=== PATIENT | male | born 1990 | race Caucasian/White ===

== ENCOUNTER 2020-03-21 05:44 | Emergency (ER) | payer OTHER, SELFPAY ==
[2020-03-21 06:03] VITALS: BP 122/84; PULSE 112; RESP 14; TEMP 36.9; O2SAT 97; BMI 33.5
[2020-03-21] MEDS: hydrOXYzine HCL 50 MG TABLET PO (06:21)
--- NOTE | 2020-03-21 06:23 | ECG_ITS ---
Test Reason : ANXIETY Blood Pressure : / mmHG Vent. Rate : 098 BPM Atrial Rate : 098 BPM P-R Int : 170 ms QRS Dur : 080 ms QT Int : 290 ms P-R-T Axes : 000 -23 -26 degrees QTc Int : 370 ms Normal sinus rhythm Low voltage QRS Possible Inferior infarct , age undetermined Abnormal ECG When compared with ECG of 15-FEB-2015 17:24, Vent. rate has increased BY 44 BPM QRS voltage has decreased Inferior infarct is now Present Inverted T waves have replaced nonspecific T wave abnormality in Inferior leads Nonspecific T wave abnormality now evident in Anterolateral leads Referred By: Samantha Goyal Electronically Signed By:EJ YUNG MD
--- NOTE | 2020-03-21 06:24 | ED.SOB ---
HPI - SOB/Dyspnea General Chief Complaint: Anxiety Stated Complaint: +Covid 19 Time Seen by Provider: 03/21/20 06:10 Source: patient Mode of arrival: ambulatory History of Present Illness HPI Narrative: This is a 29-year-old male who presents with 2-3 days shortness of breath, but states that he suffers from frequent panic attacks as well as suspecting that he has obstructive sleep apnea. These episodes of shortness of breath have not been associated with headaches, dizziness, chest pain, GI symptoms and he is noted to have been diagnosed with COVID-19 03/10. Related Data Previous Rx's Medication Instructions Recorded hydroxyzine HCl 25 mg PO TID PRN #7 tab 03/21/20 Allergies Allergy/AdvReac Type Severity Reaction Status Date / Time No Known Allergies Allergy Verified 03/21/20 06:09 Review of Systems Review of Systems: Pertinent positives and negatives as stated in HPI 10 point review of systems otherwise negative. PMFSH Past Medical History Source: nursing notes reviewed Social History Social History Advance Directives: No Physical Exam Vital Signs: Vital Signs: Last Vital Signs Temp 98.4 F 03/21/20 06:03 Pulse 105 H 03/21/20 06:25 Resp 12 03/21/20 06:25 BP 139/76 03/21/20 06:25 Pulse Ox 95 03/21/20 06:25 Body Mass Index 33.5 VITAL SIGNS: Reviewed. GENERAL: Well developed, well nourished, anxious. HEAD: Normocephalic/atraumatic, EYES: PERRLA, EOMI EARS: Ext canals without abnormality NOSE: Nares patent bilateral OROPHARYNX: no oral lesions noted, posterior pharynx clear NECK: Supple, no adenopathy LUNGS: Normal breath sounds, no tachypnea, SpO2<97> CARDIOVASCULAR: Regular rate and rhythm without noted murmurs, no JVD or lower extremity edema. ABDOMEN: Soft, non-tender, non-distended with bowel sounds. No rigidity. No guarding. No palpable masses or hernias noted MUSCULOSKELETAL: No tenderness, deformities, or effusions noted on gross inspection. EXTREMITIES: No cyanosis, clubbing or edema. SKIN: Inspection of the skin reveals no rashes, ulcerations, jaundice, pallor, or petechiae. NEUROLOGIC: Alert and oriented x 4. Strength and sensation to light touch were grossly intact x 4. Course Course Course Narrative: This is a 29-year-old male with history and clinical presentation consistent with panic attack and anxiety and on review of investigations there are no acute arrhythmias noted on EKG, D-dimer is within normal negative, and patient has had symptomatic improvement after receiving hydroxyzine. MDM - SOB/Dyspnea Lab Data Labs: Lab Results 03/21/20 Range/Units 06:39 D-Dimer < 200 NG/ML ECG Data Attestation: I personally reviewed and interpreted this ECG as follows: Interpretation: Normal sinus rhythm, HR-98, no evidence of acute ischemia, TX/QRS/QTC are within normal limits. Discharge Plan Discharge Clinical Impression: Panic disorder Patient Disposition: Home, Self-Care Instructions: Anxiety (ED), Panic Attack (ED) Additional Instructions: Please return to the emergency department if you developed acute worsening of your symptoms. Prescriptions: New hydroxyzine HCl 25 mg tablet 25 mg PO TID PRN (Reason: anxiety) Qty: 7 RF: 0 Referrals: Marco Ramirez PA-C [Primary Care Provider] - 2 days
[2020-03-21 06:25] VITALS: BP 139/76; PULSE 105; RESP 12; O2SAT 95
[2020-03-21 06:54] LABS: D Dimer < 200 NG/ML
[2020-03-21 07:21] VITALS: BP 99/64; PULSE 109; RESP 14; TEMP 36.9; O2SAT 94
--- NOTE | 2020-03-21 07:23 | PC.NURSE ---
report taken from elba/duran rn. pt resting comfortably on stretcher. reports no sob, feels more relaxed after medicated. vitals stable. sinus tach on tele. waiting re eval from provider for dispo.
== END 2020-03-21 08:19 | disposition home or self-care (01) ==
PROVIDERS: Emergency Provider Student in an Organized Health Care Education/Training Program; PCP Physician Assistant
DX: U07.1 COVID-19 (principal); F41.0 Panic disorder [episodic paroxysmal anxiety]; F43.0 Acute stress reaction; Z79.899 Other long term (current) drug therapy
CPT/HCPCS: 36415; 85379; 93005; 99283; 99284

== ENCOUNTER 2020-12-14 16:40 | Emergency (ER) | payer OTHER, SELFPAY ==
--- NOTE | ~2020-12-14 | CT_ITS ---
EXAMINATION: CT ABDOMEN AND PELVIS WITH CONTRAST CLINICAL INFORMATION: Epigastric and left lower quadrant pain. COMPARISON: No similar priors. TECHNIQUE: Multidetector volumetric images were obtained from the superior aspect of the liver through the pubic symphysis following administration 85 mL of Omnipaque 350 intravenous contrast. Sagittal and coronal reformatted images were obtained on the technologist's workstation. Oral contrast: No This CT examination was performed using dose optimization techniques as appropriate, variously including the following: *Automated exposure control *Adjustment of mA and/or kV according to patient size (this includes techniques or standardized protocols for targeted exams where dose is matched to indication/reason for exam; i.e. extremities or head) *Use of iterative reconstruction technique DLP: 820 mGy-cm FINDINGS: LUNG BASES: Subsegmental atelectasis in the right middle lobe. No focal consolidation or pleural effusion. LIVER, GALLBLADDER, AND BILIARY TREE: The liver is normal in size, shape, and attenuation. No focal hepatic lesion or biliary ductal dilatation is present. The gallbladder is unremarkable with no evidence of radiopaque gallstones, gallbladder wall thickening, or obvious pericholecystic inflammatory changes. PANCREAS: Unremarkable. SPLEEN: Unremarkable. ADRENAL GLANDS: Unremarkable. KIDNEYS AND URETERS: The kidneys are normal in size, shape, and attenuation. No hydronephrosis, hydroureter, or calculi seen. No perinephric stranding. BLADDER: Unremarkable. GASTROINTESTINAL TRACT: The stomach and the small bowel are nondilated. The appendix is unremarkable. There is colonic diverticulosis but no evidence of acute diverticulitis. No pericolic inflammatory changes. No bowel obstruction. Moderate amount stool burden in the sigmoid and rectum. ABDOMINAL WALL: Small fat-containing umbilical hernia. LYMPH NODES: No lymphadenopathy by size criteria. VASCULAR: Unremarkable. PELVIC VISCERA: Unremarkable. OSSEOUS STRUCTURES: No acute or aggressive osseous abnormalities. CT/CT abdomen pelvis w con IMPRESSION: No acute intra-abdominal or pelvic abnormalities to explain the patient's symptoms. There is mild colonic diverticulosis but no evidence of acute diverticulitis.
[2020-12-14 16:52] VITALS: BP 145/78; PULSE 69; RESP 16; TEMP 36.2; O2SAT 99; BMI 31.1
[2020-12-14 17:12] LABS: Basophils Absolute Auto 0.1 X10*3/uL (0.0-0.2); Basophils Percent Auto 0.7 % (0-2); Eosinophils Absolute Auto 0.1 X10*3/uL (0.0-0.4); Eosinophils Percent Auto 0.9 % (0-4); Hematocrit 42.5 % (42-52); Hemoglobin 14.4 g/dl (14.0-18.0); Imm Gran Abs Auto 0.04 X10*3/uL (0.00-0.03); Imm Gran Pct Auto 0.4 % (0.0-0.4); Lymphocytes Absolute Auto 2.2 X10*3/uL (1.2-4.9); Lymphocytes Percent Auto 24.2 % (20-40); MANUAL DIFF FLAG NO; Mean Corpuscular HGB Conc 33.9 g/dl (31.0-36.0); Mean Corpuscular Hemoglobin 30.5 pg (27.0-33.0); Mean Platelet Volume 8.9 fL (9.4-12.4); Monocytes Absolute Auto 0.8 X10*3/uL (0.1-1.2); Monocytes Percent Auto 9.1 % (2-11); Neutrophils Percent Auto 64.7 % (45-73); Platelet Count 250 X10*3/uL (160-400); Red Blood Count 4.72 X10*6/uL (4.60-5.80); Red Cell Distribution Width 13.2 % (11.0-16.0); White Blood Count 9.2 X10*3/uL (4.8-10.8)
[2020-12-14 17:12] LABS: Appearance Urine CLEAR; Color Urine YELLOW; Glucose Urine UA NEG (NEG); Leukocyte Esterase Urine NEG (NEG); Nitrite Urine NEG (NEG); Urine Blood NEG (NEG); Urine Ketones NEG (NEG); Urine Protein NEG (NEG-TRACE)
[2020-12-14 17:27] LABS: Alanine Aminotransferase 34 U/L (0-40); Albumin Level 4.7 g/dL (3.5-5.0); Alkaline Phosphatase 56 U/L (39-117); Anion Gap 15 (12-20); Aspartate Amino Transferase 23 U/L (5-37); Bilirubin Total 1.1 mg/dL (0.0-1.0); Blood Urea Nitrogen 16 mg/dL (9-16); Carbon Dioxide 29 mmol/L (22-29); Chloride 102 mmol/L (96-108); Creatinine Clr Calc Pharmacy 123.7; Estimated Glomerular Filt Rate > 60; Glucose Random 91 mg/dL (60-115); Potassium 4.7 mmol/L (3.3-5.1); Sodium 141 mmol/L (135-145); Total Protein 7.6 g/dL (6.5-8.0)
--- NOTE | 2020-12-14 17:55 | ED.ABDPAIN ---
HPI - Abdominal Pain General Chief Complaint: Abdominal Pain Stated Complaint: Stomach Pain Time Seen by Provider: 12/14/20 17:31 Source: patient Mode of arrival: ambulatory Limitations: no limitations History of Present Illness HPI narrative: 30-year-old male who presents emergency department for evaluation of upper and lower abdominal pain. Patient states he has had similar pain on and off over the past year. He states that he turned 30 yesterday and he did have a significant amount of alcohol to drink over the weekend. He states that yesterday morning he woke up with abdominal pain. He points to his epigastric area and left lower quadrant when asked to localize the pain. He describes the pain as a burning sensation which is constant and is 8/10 at its worst. He states that food seems to make the pain worse. He states that often the pain is worse immediately after eating and sometimes worse several hours after eating. He states that he gets intermittent episodes of diarrhea with no blood in his stool. The patient did see a storm window installer who specializes and ?got health ?. Patient had a workup by this storm window installer approximately 1 month prior and it was noted that he had blood in his stool. He is also noted to have increased IgA in his stool suggesting that he has an inflammatory process according to his storm window installer. The patient states the often has a abnormal taste in his mouth but is vague at specify the sensation. He states that he has been having trouble sleeping. He will occasionally take Tums with improvement of his epigastric pain. Related Data Previous Rx's Medication Instructions Recorded hydroxyzine HCl 25 mg tablet 25 mg PO TID PRN #7 tab 03/21/20 omeprazole 20 mg capsule,delayed 20 mg PO DAILY 30 Days #30 cap 12/14/20 release ondansetron 4 mg disintegrating 4 mg PO Q6-8H PRN #14 tab 12/14/20 tablet Allergies Allergy/AdvReac Type Severity Reaction Status Date / Time No Known Allergies Allergy Verified 03/21/20 06:09 Review of Systems Review of Systems Yes all other systems are reviewed and are negative Physical Exam Vital Signs: Vital Signs: Last Vital Signs Temp 97.2 F 12/14/20 16:52 Pulse 69 12/14/20 16:52 Resp 16 12/14/20 16:52 BP 145/78 H 12/14/20 16:52 Pulse Ox 99 12/14/20 16:52 Body Mass Index 31.1 Const: General: cooperative and no acute distress Orientation/consciousness: oriented to person and oriented to place Limitations: no limitations HENMT: Head: Yes normal to inspection, Yes normocephalic and Yes atraumatic Ears: external ears normal General nose exam: Normal external nose present Face and sinus: Yes normal facial exam Mouth: Normal oral and palatal mucosa present Throat: Yes posterior oropharynx normal Eyes: General: appearance normal, both eyes and all related structures Pupils: Equal, round and reactive pupils present Neck: Neck: Yes normal visual inspection, Yes no lymphadenopathy, Yes trachea midline and Yes supple Chest: Chest palpation & inspection: normal inspection of the chest and normal palpation of entire chest wall Resp: Effort & Inspection: normal respiratory effort and able to speak in complete sentences Auscultation: clear to auscultation bilaterally Cardio: Rate: regular rate Rhythm: regular rhythm Heart sounds: S1 normal heart sound present, S2 normal heart sound present and no murmurs GI: Inspection: Yes normal to inspection Palpation (GI): Soft to palpation, Tenderness to palpation present (GI) in the epigastrum (Moderate) and in the LLQ (Moderate) and no guarding Auscultation: normal bowel sounds Rectal Exam - Male: Yes Visual inspection abnormal, Yes normal sphincter tone, Yes heme negative stool and Yes other (Stool was soft and brown) : General: Yes no CVA tenderness Back/Spine/Pelvis: Back: no CVA tenderness Skin: General skin exam: no rashes or lesions noted Neuro: General: oriented to person and oriented to place Cranial nerves: Yes CN's II-XII intact bilaterally and Yes Equal, round and reactive pupils present Cognition (Neuro): normal cognition Motor exam (neuro): 5/5 motor strength present throughout Extrem: General: Yes normal to inspection Psych: Appearance: grossly normal Speech and movement: Normal speech and movement present Affect: normal affect Attitude: cooperative Thought process: Normal thought process present Thought content: Normal thought content present Course Course Course Narrative: 30-year-old male who presents emergency department for evaluation of epigastric and left lower quadrant pain which began yesterday. The patient did have increased amount of alcohol to drink over the weekend since it was his birthday. He states that the pain is exacerbated by eating food. Patient has had similar pains in the past . Vital signs revealed a slight elevation in his blood pressure of 145/78 otherwise were normal. Physical examination did reveal midepigastric and left lower quadrant tenderness. Rectal exam revealed brown stool which was Hemoccult negative. The patient's laboratory evaluation revealed a normal CBC and normal CMP except for slight elevation in total bilirubin of 1.1. Urinalysis was negative. Given his left lower quadrant tenderness, I did order a CT scan of the abdomen pelvis with IV contrast to rule out diverticulitis. The patient will be given Maalox 30 cc, viscous lidocaine 30 cc and 10 cc orally for his epigastric pain. 2004: The patient's CT scan of the abdomen pelvis with IV contrast did not reveal a clear etiology for the patient's pain. Patient does have diverticulosis but no diverticulitis. There is no evidence of cholecystitis on the CT scan. I did discuss these findings with the patient. The patient is feeling better after receiving the GI cocktail. My impression is that the patient's pain is most likely caused by gastritis and could be related to the amount of alcohol that he drinks. I did discuss this with him as well. Patient was started on Prilosec 20 mg once a day for 1 month. Also advised to take Gaviscon extra-strength for the next week help with his discomfort. The patient was also given a prescription for Zofran 4 mg ODT every 6-8 hours as needed for nausea and vomiting. He was advised to stay on a basic diet for 1 week as well to see if this improves his pain. MDM - Abdominal Pain Lab Data Result diagrams: 12/14/20 17:05 12/14/20 17:05 Labs: Lab Results 12/14/20 12/14/20 12/14/20 Range/Units 17:05 17:05 17:07 WBC 9.2 (4.8-10.8) X10*3/uL RBC 4.72 (4.60-5.80) X10*6/uL Hgb 14.4 (14.0-18.0) g/dl Hct 42.5 (42-52) % MCV 90.0 (80-98) fL MCH 30.5 (27.0-33.0) pg MCHC 33.9 (31.0-36.0) g/dl RDW 13.2 (11.0-16.0) % Plt Count 250 (160-400) X10*3/uL MPV 8.9 L (9.4-12.4) fL Immature Gran % (Auto) 0.4 (0.0-0.4) % Neut % (Auto) 64.7 (45-73) % Lymph % (Auto) 24.2 (20-40) % Piatt % (Auto) 9.1 (2-11) % Eos % (Auto) 0.9 (0-4) % Baso % (Auto) 0.7 (0-2) % Lymph # (Auto) 2.2 (1.2-4.9) X10*3/uL Piatt # (Auto) 0.8 (0.1-1.2) X10*3/uL Eos # (Auto) 0.1 (0.0-0.4) X10*3/uL Baso # (Auto) 0.1 (0.0-0.2) X10*3/uL Abs Immat Gran (auto) 0.04 H (0.00-0.03) X10*3/uL Absolute Neuts (auto) 6.0 (2.0-8.3) X10*3/uL Absolute Nucleated RBC 0.000 (0.0-0.012) X10*3/uL Nucleated RBC % (auto) 0.0 (0.0-0.2) /100WBC Sodium 141 (135-145) mmol/L Potassium 4.7 (3.3-5.1) mmol/L Chloride 102 (96-108) mmol/L Carbon Dioxide 29 (22-29) mmol/L Anion Gap 15 (12-20) BUN 16 (9-16) mg/dL Creatinine 1.09 (0.5-1.4) mg/dL Estim Creat Clear Calc 123.7 Estimated GFR > 60 Random Glucose 91 (60-115) mg/dL Calcium 10.0 (8.4-10.2) mg/dL Total Bilirubin 1.1 H (0.0-1.0) mg/dL AST 23 (5-37) U/L ALT 34 (0-40) U/L Alkaline Phosphatase 56 (39-117) U/L Total Protein 7.6 (6.5-8.0) g/dL Albumin 4.7 (3.5-5.0) g/dL Urine Color YELLOW Urine Appearance CLEAR Urine pH 6.0 (5.0-8.0) Ur Specific [place] 1.010 (1.005-1.025) Urine Protein NEG (NEG-TRACE) MG/DL Urine Glucose (UA) NEG (NEG) MG/DL Urine Ketones NEG (NEG) MG/DL Urine Blood NEG (NEG) Urine Nitrite NEG (NEG) Ur Leukocyte Esterase NEG (NEG) Discharge Plan Discharge Clinical Impression: Nausea Gastritis Qualifiers: Gastritis type: unspecified gastritis Chronicity: acute Gastritis bleeding: without bleeding Qualified Code(s): K29.00 - Acute gastritis without bleeding Patient Disposition: Home, Self-Care Instructions: Gastritis (ED), Diet for Stomach Ulcers and Gastritis (ED) Additional Instructions: Your examination did reveal tenderness with pushing over your stomach area and with pushing over your left lower part of your abdomen. Your rectal exam revealed normal colored stool and your Hemoccult test was negative for blood in your stool The CT scan of your abdomen pelvis with IV contrast did not reveal a clear cause for your pain. Your gallbladder looked normal however gallstones are not visible on a CT scan but I do not think that your pain is caused by your gallbladder. You do have diverticulosis (small pockets in your large intestine) in your left colon but I do not think that this is the cause of your pain. Your pain is most likely related to inflammation of your stomach (gastritis). This can sometimes caused by drinking too much alcohol. You should stop drinking alcohol for at least 1 month. Take Prilosec (omeprazole) 20 mg once a day for 1 month. This medication shuts off your acid production and allows your stomach to heal. For the next week take extra-strength Gaviscon 30 mL 4 times a day as directed on the box this will help with your stomach pain and reduce the acid in your stomach until the Prilosec kicks in. After 1 month if you are feeling better but are still having intermittent pain you should take an [id number] H2 daphne (Pepcid, Zantac or Tagamet) as directed on the box. If the pain is not better or getting worse than you may need to see a financial analyst intern, you should discuss this with your doctor. Take Zofran ODT 4 mg pills, 1 pill dissolved in your mouth every 8 hours as needed for nausea and vomiting. Follow the diet instructions. Follow-up with your doctor in 2 days. Please return to the emergency department if your symptoms get worse or if you develop any symptoms that are concerning to you. Prescriptions: New omeprazole 20 mg capsule,delayed release(DR/EC) 20 mg PO DAILY 30 Days Qty: 30 RF: 0 ondansetron 4 mg tablet,disintegrating 4 mg PO Q6-8H PRN (Reason: nausea and vomiting) Qty: 14 RF: 0 No Action hydroxyzine HCl 25 mg tablet 25 mg PO TID PRN (Reason: anxiety) Qty: 7 RF: 0 PMFSH Past Medical History [facility] Narrative: Past medical history: None. Past surgical history: None. Social history: The patient occasionally smokes cigarettes. He states that he drinks alcohol 3 times a week any drinks [employer] 3-4 shots when he drinks. He denies drug use. Social History Social History Advance Directives: No Advance Directives Information Provided: Yes
[2020-12-14] MEDS: Magnesium Hydrox/Alum Hydrox 30 ML ORAL.SUSP PO (18:11)
[2020-12-14] MEDS: PHENobarb/Hyoscy/Atropine/Scop 10 ML ELIXIR PO (18:11)
[2020-12-14] MEDS: Lidocaine HCl Viscous 2 % 15 ML SOLUTION 10 ML PO (18:11)
[2020-12-14] MEDS: iohexoL 350 MG/ML 100 ML INFUS..BTL IV (18:27)
== END 2020-12-14 20:27 | disposition home or self-care (01) ==
PROVIDERS: Emergency Provider Emergency Medicine Emergency Medical Services; PCP Physician Assistant
DX: K29.00 Acute gastritis without bleeding (principal); R11.0 Nausea
CPT/HCPCS: 36415; 74177; 80053; 81003; 85025; 99284; 99285; Q9967

== ENCOUNTER 2022-01-21 05:31 | Emergency (ER) | payer MEDICAID, SELFPAY ==
[2022-01-21 05:35] VITALS: BP 128/67; PULSE 104; RESP 18; TEMP 39.3; O2SAT 98; BMI 30.7
[2022-01-21] MEDS: Acetaminophen 325 MG TABLET 975 MG PO (05:43)
[2022-01-21 06:33] LABS: Influenza A PCR NEGATIVE (Negative); Influenza B PCR NEGATIVE (Negative); Resp Syncy Virus RNA Qual PCR POSITIVE (Negative); SARS COV2 PCR INHOUSE NEGATIVE (Negative)
--- NOTE | 2022-01-21 08:01 | ED.GENADULT ---
HPI - General Adult General Chief complaint: General Medical Stated complaint: Fever/Sore throat/Bodyaches Time Seen by Provider: 01/21/22 07:59 Source: patient Mode of arrival: ambulatory Limitations: no limitations History of Present Illness HPI narrative: 31-year-old male with no medical history presents to the ER for evaluation of fevers and body aches. He has productive cough and generally not feeling well. He states he has been on and off sick since but acutely woke up at 03:00 this morning with worsening symptoms. He has a young daughter at home but she is not sick right now. No other known sick contacts. He has no difficulty breathing, shortness of breath, nausea, vomiting or abdominal pain. MD complaint: Fevers and body aches Onset (ago): hour(s) Location: head, face and chest Radiation: non-radiation Severity: moderate Severity scale (1-10): 5 Quality: aching Pain Consistency: constant Relieving factors: medication Exacerbating factors: none Associated symptoms: cough, fever/chills, headaches, loss of appetite, malaise and weakness Treatments prior to arrival: none Related Data Previous Rx's Medication Instructions Recorded hydroxyzine HCl 25 mg tablet 25 mg PO TID PRN anxiety #7 tabs 03/21/20 omeprazole 20 mg capsule,delayed 20 mg PO DAILY 30 days #30 caps 12/14/20 release ondansetron 4 mg disintegrating 4 mg PO Q6-8H PRN nausea and 12/14/20 tablet vomiting #14 tabs Allergies Allergy/AdvReac Type Severity Reaction Status Date / Time No Known Allergies Allergy Verified 01/21/22 05:39 Review of Systems Review of Systems: Constitutional: +Fever, +Chills ENT/Mouth: No sore throat, No Rhinorrhea, No Swallowing Difficulty, +Otalgia Eyes: No Eye Pain, No Swelling, No Redness Cardiovascular: No Chest Pain, No SOB, No Orthopnea, No Edema Respiratory: + Cough, +Sputum, No Wheezing, No dyspnea Gastrointestinal: No Nausea, No Vomiting, No Diarrhea, No abdominal Pain Genitourinary: No Dysuria, No Urinary Frequency, No Hematuria Musculoskeletal: No joint pain, + Myalgias Skin: No Skin Lesions, No rash Neuro: No Weakness, No Numbness, No Dizziness, +Headache Heme/Lymph: No Bruising, No Lymphadenopathy PMFSH Social History Social History Advance Directives: No Advance Directives Information Provided: Yes Physical Exam ED Vital Signs: Vital Signs - 24 hr 01/21/22 05:35 Temperature 102.7 F H Pulse Rate 104 H Respiratory Rate 18 Blood Pressure 128/67 Pulse Oximetry 98 Oxygen Delivery Method Room Air BMI result Body Mass Index 30.7 Appearance: Alert. Oriented X3. No acute distress. Eyes: Pupils equal, round and reactive to light. ENT: Pharynx normal. Neck: Normal inspection. Neck supple. CVS: Normal heart rate and rhythm. Pulses normal. Respiratory: No respiratory distress. Breath sounds normal. Abdomen: Soft and nontender. +BS x4 Skin: Skin warm and dry. Normal skin color. Normal skin turgor. No rashes. Extremities: No lower extremity edema. Neuro: Oriented X 3. Grossly normal, nonfocal Course Course Course Narrative: 31-year-old male presents to the ER for evaluation of fever, body aches, productive cough. Fever of 102.7 on arrival today. Will he otherwise appears well in physical exam is unremarkable. He had viral PCR today and he tested positive for RSV. Discussed diagnosis and management. He is stable for discharge home with supportive care. Medications Administered Discontinued Medications Generic Name Dose Route Start Last Admin Trade Name Freq PRN Reason Stop Dose Admin Acetaminophen 975 mg 01/21/22 05:40 01/21/22 05:43 Acetaminophen 325 Mg Tablet PO 01/21/22 05:41 975 mg ONCE ONE Administration Medical Decision Making Lab Data Labs: Lab Results 01/21/22 Range/Units 05:47 Influenza Type A (PCR) NEGATIVE (Negative) Influenza Type B (PCR) NEGATIVE (Negative) RSV RNA Qual (PCR) POSITIVE A (Negative) SARS-CoV-2 RNA (RT-PCR) NEGATIVE (Negative) Discharge Plan Discharge Clinical Impression: Respiratory syncytial virus (RSV) Patient Disposition: Home, Self-Care Instructions: Respiratory Syncytial Virus (ED) Additional Instructions: You tested positive for RSV today. Treatment is supportive care - rest and stay hydrated. Do not go out in public while you are not feeling well. Take over the counter cold/flu medications as needed for your symptoms. Take Tylenol and/or Motrin as needed for fevers and body aches. Follow up with your doctor this week. If you develop new or worsening symptoms call 911 or come back to the ER for further evaluation. Prescriptions: No Action hydroxyzine HCl 25 mg tablet 25 mg PO TID PRN (Reason: anxiety) Qty: 7 0RF omeprazole 20 mg capsule,delayed release(DR/EC) 20 mg PO DAILY 30 Days Qty: 30 0RF ondansetron 4 mg tablet,disintegrating 4 mg PO Q6-8H PRN (Reason: nausea and vomiting) Qty: 14 0RF Stand Alone Forms: Work/School Release
== END 2022-01-21 08:26 | disposition home or self-care (01) ==
PROVIDERS: Emergency Provider Emergency Medicine
DX: R50.9 Fever, unspecified (principal); B97.4 Respiratory syncytial virus as the cause of diseases classified elsewhere; R51.9 Headache, unspecified; Z20.822 Contact with and (suspected) exposure to COVID-19
CPT/HCPCS: 0241U; 99283

== ENCOUNTER 2022-12-02 07:28 | Emergency (ER) | payer OTHER, SELFPAY ==
[2022-12-02 07:53] VITALS: BP 134/89; PULSE 77; RESP 16; TEMP 37; O2SAT 98; BMI 34.9
--- NOTE | 2022-12-02 08:31 | ED.URI ---
HPI - URI/Sore Throat General Chief Complaint: Upper Respiratory Symptoms Stated Complaint: sore throat Time Seen by Provider: 12/02/22 08:04 Source: patient Mode of arrival: ambulatory Limitations: no limitations History of Present Illness HPI Narrative: 31-year-old male came in for evaluation of sore throat x1 day. No fever, chills, no exposure to sick contacts, no recent travel. Related Data Previous Rx's Medication Instructions Recorded hydroxyzine HCl 25 mg tablet 25 mg PO TID PRN anxiety #7 tabs 03/21/20 omeprazole 20 mg capsule,delayed 20 mg PO DAILY 30 days #30 caps 12/14/20 release ondansetron 4 mg disintegrating 4 mg PO Q6-8H PRN nausea and 12/14/20 tablet vomiting #14 tabs amoxicillin 875 mg-potassium 1 tab PO Q12H #20 tabs 12/02/22 clavulanate 125 mg tablet Allergies Allergy/AdvReac Type Severity Reaction Status Date / Time No Known Allergies Allergy Verified 01/21/22 05:39 Review of Systems Review of Systems: All other systems are reviewed and are negative Constitutional: Reports as per HPI and Reports no additional constitutional complaints Eyes: Reports as per HPI and Reports no additional eye complaints Reports system reviewed and no additional complaints, except as documented Cardiovascular: Reports as per HPI and Reports no additional cardiovascular complaints Respiratory: Reports as per HPI and Reports no additional respiratory complaints Gastrointestinal: Reports as per HPI and Reports no additional gastrointestinal complaints Genitourinary: Reports no additional female genitourinary complaints Musculoskeletal: Reports no additional musculoskeletal complaints Skin/Breast: Reports system reviewed and no additional complaints, except as docu Psychiatric: Reports no additional psychiatric complaints Endocrine: Reports no additional endocrine complaints Hematologic/Lymphatic: Reports no additional hematologic/lymphatic complaints Allergic/Immunologic: Reports no additional allergic/immunologic complaints Reports system reviewed and no additional complaints, except as documented and Reports Abnormal speech present [facility] Social History Social History Advance Directives: No Advance Directives Information Provided: No Physical Exam Vital Signs: Vital Signs: Last Vital Signs Temp 98.6 F 12/02/22 07:53 Pulse 77 12/02/22 07:53 Resp 16 12/02/22 07:53 BP 134/89 12/02/22 07:53 Pulse Ox 98 12/02/22 07:53 O2 Del Method Room Air 12/02/22 07:53 BMI result Body Mass Index 34.9 Vital signs have been reviewed and appear to be correct. Blood pressure elevated. Heart rate normal. Respiratory rate normal. Temperature normal. Oxygen saturation normal. Appearance: Alert. Oriented X3. No acute distress. Head: Normal external exam. Normocephalic. Atraumatic. No Seaman signs noted. No raccoon eyes noted Eyes: PERRLA. EOMI. Conjunctiva and sclera normal. Eyelids normal. ENT: TM's Normal. Pharynx normal. Uvula midline. Moist mucous membranes. No trismus noted. No drooling noted. No muffled voice noted. Neck: Normal inspection. Neck supple. FROM. No adenopathy. Thyroid Normal. No meningeal signs. No neck mass noted. CVS: Normal heart rate and rhythm. Heart sound normal. No murmurs noted. Pulses normal throughout. Respiratory: No respiratory distress. Painless inspiration. Breath sounds normal. No wheezes/rales/rhonchi noted. Chest nontender. No accessory muscle usage noted or decreased air movement noted. Abdomen: Soft and nontender. Bowel sounds normal in all 4 quadrants. No distention noted. No organomegaly noted. No visible injury noted. Back: No CVA tenderness. Full range of motion noted. Skin: Skin warm and dry. Normal skin color. Normal skin turgor. No rashes/lesions/lacerations noted. Extremities: No lower extremity edema. Extremities exhibit normal range of motion. Extremities nontender. Neuro: Oriented X 3. Cranial nerve exam: II-XII are grossly intact No motor deficit. No sensory deficit. Reflexes normal. Course Reevaluation(s) Reevaluation #1: Strep pharyngitis Start the patient on Augmentin Time: 08:44 Medical Decision Making Differential Diagnosis Differential Diagnoses: The differential diagnosis associated with the presentation includes ( pharyngitis, viral infection.) Lab Data MDM Lab Attestation statement: I reviewed the patient's lab results. Labs: Lab Results 12/02/22 Range/Units 08:07 S. pyogenes GrpA ANGELIC Positive A (Negative) Discharge Plan Discharge Clinical Impression: Pharyngitis Patient Disposition: Home, Self-Care Instructions: Pharyngitis (ED) Prescriptions: New amoxicillin-pot clavulanate 875-125 mg tablet 1 tab PO Q12H Qty: 20 0RF No Action hydroxyzine HCl 25 mg tablet 25 mg PO TID PRN (Reason: anxiety) Qty: 7 0RF omeprazole 20 mg capsule,delayed release(DR/EC) 20 mg PO DAILY 30 Days Qty: 30 0RF ondansetron 4 mg tablet,disintegrating 4 mg PO Q6-8H PRN (Reason: nausea and vomiting) Qty: 14 0RF Referrals: Aidan Minor MD [Primary Care Provider] - Stand Alone Forms: Work/School Release
[2022-12-02 08:39] LABS: IDNOW Serial# 08D9AD1C; Strep A Nucleic Acid Positive (Negative)
[2022-12-02 08:46] LABS: COVID-19 Test Negative (Negative); IDNOW Serial# BCCEAD1C
[2022-12-02] MEDS: Amoxicillin/Potassium Clav 875 MG TABLET PO (08:56)
== END 2022-12-02 09:26 | disposition home or self-care (01) ==
PROVIDERS: Emergency Provider Emergency Medicine; PCP Internal Medicine
DX: J02.9 Acute pharyngitis, unspecified (principal); Z11.52 Encounter for screening for COVID-19
CPT/HCPCS: 87635; 87651; 99282

== ENCOUNTER 2023-01-14 03:36 | Emergency (ER) | payer OTHER, SELFPAY ==
--- NOTE | ~2023-01-14 | XR_ITS ---
EXAMINATION: XR CHEST CLINICAL INFORMATION: Cough, congestion, shortness of breath COMPARISON: 02/15/2015 TECHNIQUE: Frontal view of the chest was obtained. FINDINGS: The lungs are clear with no focal consolidation. No evidence of pneumothorax, pulmonary edema, or pleural effusions. The cardiomediastinal silhouette is unremarkable. No acute osseous findings. XR/XR chest 1V IMPRESSION: No acute cardiopulmonary findings.
[2023-01-14 03:45] VITALS: BP 154/83; PULSE 77; RESP 18; TEMP 36.8; O2SAT 97; BMI 35.6
--- NOTE | 2023-01-14 03:59 | ED.URI ---
HPI - URI/Sore Throat General Chief Complaint: Upper Respiratory Symptoms Stated Complaint: respiratory problem Time Seen by Provider: 01/14/23 04:04 Source: patient Mode of arrival: ambulatory Limitations: no limitations History of Present Illness HPI Narrative: 32-year-old male came in for evaluation of coughing, sore throat, bilateral ear pain. About a month ago patient was diagnosed with strep pharyngitis that was treated with Augmentin, the patient started to have some upper respiratory with cough no fever, or chills. Patient has 3 daughters at home the youngest is always feels sick. Patient declined fever or chills. Related Data Previous Rx's Medication Instructions Recorded hydroxyzine HCl 25 mg tablet 25 mg PO TID PRN anxiety #7 tabs 03/21/20 omeprazole 20 mg capsule,delayed 20 mg PO DAILY 30 days #30 caps 12/14/20 release ondansetron 4 mg disintegrating 4 mg PO Q6-8H PRN nausea and 12/14/20 tablet vomiting #14 tabs amoxicillin 875 mg-potassium 1 tab PO Q12H #20 tabs 12/02/22 clavulanate 125 mg tablet amoxicillin 500 mg tablet 500 mg PO BID #20 tabs 01/14/23 Allergies Allergy/AdvReac Type Severity Reaction Status Date / Time No Known Allergies Allergy Verified 01/21/22 05:39 Review of Systems Review of Systems: All other systems are reviewed and are negative Constitutional: Reports as per HPI and Reports no additional constitutional complaints Eyes: Reports as per HPI and Reports no additional eye complaints Reports system reviewed and no additional complaints, except as documented Cardiovascular: Reports as per HPI and Reports no additional cardiovascular complaints Respiratory: Reports as per HPI and Reports no additional respiratory complaints Gastrointestinal: Reports as per HPI and Reports no additional gastrointestinal complaints Genitourinary: Reports no additional female genitourinary complaints Musculoskeletal: Reports no additional musculoskeletal complaints Skin/Breast: Reports system reviewed and no additional complaints, except as docu Psychiatric: Reports no additional psychiatric complaints Endocrine: Reports no additional endocrine complaints Hematologic/Lymphatic: Reports no additional hematologic/lymphatic complaints Allergic/Immunologic: Reports no additional allergic/immunologic complaints Reports system reviewed and no additional complaints, except as documented and Reports Abnormal speech present PMFSH Social History Alcohol intake: current Alcohol intake frequency: a few times a week Smoked in Last 30 Days: No Use of substances other than those prescribed or required for medical reasons: No Advance Directives: No Advance Directives Information Provided: Yes Physical Exam Vital Signs: Vital Signs: Last Vital Signs Temp 98.2 F 01/14/23 06:02 Pulse 72 01/14/23 06:02 Resp 16 01/14/23 06:02 BP 146/87 H 01/14/23 06:02 Pulse Ox 94 01/14/23 06:02 O2 Del Method Room Air 01/14/23 06:02 BMI result Body Mass Index 35.6 Vital signs have been reviewed and appear to be correct. Blood pressure elevated. Heart rate normal. Respiratory rate normal. Temperature normal. Oxygen saturation normal. Appearance: Alert. Oriented X3. No acute distress. Head: Normal external exam. Normocephalic. Atraumatic. No Seaman signs noted. No raccoon eyes noted Eyes: PERRLA. EOMI. Conjunctiva and sclera normal. Eyelids normal. ENT: TM's Normal. Pharynx normal. Uvula midline. Moist mucous membranes. No trismus noted. No drooling noted. No muffled voice noted. Neck: Normal inspection. Neck supple. FROM. No adenopathy. Thyroid Normal. No meningeal signs. No neck mass noted. CVS: Normal heart rate and rhythm. Heart sound normal. No murmurs noted. Pulses normal throughout. Respiratory: No respiratory distress. Painless inspiration. Breath sounds normal. No wheezes/rales/rhonchi noted. Chest nontender. No accessory muscle usage noted or decreased air movement noted. Abdomen: Soft and nontender. Bowel sounds normal in all 4 quadrants. No distention noted. No organomegaly noted. No visible injury noted. Back: No CVA tenderness. Full range of motion noted. Skin: Skin warm and dry. Normal skin color. Normal skin turgor. No rashes/lesions/lacerations noted. Extremities: No lower extremity edema. Extremities exhibit normal range of motion. Extremities nontender. Neuro: Oriented X 3. Cranial nerve exam: II-XII are grossly intact No motor deficit. No sensory deficit. Reflexes normal. Course Reevaluation(s) Reevaluation #1: Patient is positive for rapid strep, start the patient on amoxicillin. Since this is the 2nd strep pharyngitis in 6 weeks and in between patient never felt completely normal I suggested to the patient to follow-up with ENT doctor for further evaluation and reassurance. Time: 05:31 Medications Administered Discontinued Medications Generic Name Dose Route Start Last Admin Trade Name Bola PRN Reason Stop Dose Admin Amoxicillin 500 mg 01/14/23 05:29 01/14/23 05:43 Amoxicillin 500 Mg Capsule PO 01/14/23 05:30 500 mg ONCE ONE Administration Medical Decision Making Differential Diagnosis Differential Diagnoses: The differential diagnosis associated with the presentation includes (Acute pharyngitis, pneumonia, pneumothorax, viral syndrome.) Admission/Observation Consideration of admission/observation: Escalation of care including admission/observation considered Lab Data MDM Lab Attestation statement: I reviewed the patient's lab results. Labs: Lab Results 01/14/23 Range/Units 04:11 Influenza Type A (PCR) NEGATIVE (Negative) Influenza Type B (PCR) NEGATIVE (Negative) RSV RNA Qual (PCR) NEGATIVE (Negative) SARS-CoV-2 RNA (RT-PCR) NEGATIVE (Negative) S. pyogenes GrpA ANGELIC Positive A (Negative) Independent Interpretation I performed an independent interpretation of an: Plain X-Ray (Chest: No acute intrathoracic pathology.) Radiology Impression Discussion of test interpretation with radiology: I have reviewed the radiologist's reading. Discharge Plan Discharge Clinical Impression: Acute streptococcal pharyngitis Patient Disposition: Home, Self-Care Instructions: Strep Throat (ED) Prescriptions: New amoxicillin 500 mg tablet 500 mg PO BID Qty: 20 0RF No Action hydroxyzine HCl 25 mg tablet 25 mg PO TID PRN (Reason: anxiety) Qty: 7 0RF omeprazole 20 mg capsule,delayed release(DR/EC) 20 mg PO DAILY 30 Days Qty: 30 0RF ondansetron 4 mg tablet,disintegrating 4 mg PO Q6-8H PRN (Reason: nausea and vomiting) Qty: 14 0RF amoxicillin-pot clavulanate 875-125 mg tablet 1 tab PO Q12H Qty: 20 0RF Referrals: Miguelangel Maria [Physician] - Interventions: ED Discharge Assessment Last Done: 01/14/23 06:07 Discharge Date/Time: 01/14/23 06:08
[2023-01-14 04:33] LABS: IDNOW Serial# 08D9AD1C; Strep A Nucleic Acid Positive (Negative)
--- OUTSIDE RECORDS SUMMARY | 2023-01-14 04:50 | XMS_ITS | Continuity of Care Document ---
Author Name Unknown Organization [facility] Address [address] [place] [address]- Care Team Providers Care Upper Trimmer Name Role Phone Aidan Minor MD Primary Care Physician [phone] [place] [facility] [place]/23 [facility] [address] [place] [address]- Encounter Diagnosis Cough(Discharge Diagnosis) - 01/01/23 Blood pressure elevated without history of HTN(Discharge Diagnosis) - 01/01/23 Attending Physician: Not on Staff, Attending MD Referring Physician: Aidan Minor MD Allergies, Adverse Reactions, Alerts No Known Allergies Immunizations Given and Recorded Vaccine Date Status Refusal Reason SARS-CoV-2 (COVID-19) mRNA BNT-162b2 vac 05/25/20 Given SARS-CoV-2 (COVID-19) mRNA BNT-162b2 vac 05/04/20 Given tetanus-diphtheria toxoids (Td) 10/15/02 Given diphtheria/tetanus/pertussis, acel(DTaP) 08/21/95 Given Polio Vaccine, Live (oldterm) 1 08/21/95 Given Polio Vaccine, Live (oldterm) 2 02/07/93 Given Polio Vaccine, Live (oldterm) 3 06/16/91 Given Polio Vaccine, Live (oldterm) 4 04/16/91 Given Measles/Mumps/Rubella Virus Vaccine 08/21/95 Given Measles/Mumps/Rubella Virus Vaccine 04/08/92 Given hepatitis B pediatric vaccine 06/07/95 Given hepatitis B pediatric vaccine 01/25/95 Given hepatitis B pediatric vaccine 09/26/94 Given Diphth/Pertussis, Whl Cell/Tet(oldterm) 5 02/07/93 Given Diphth/Pertussis, Whl Cell/Tet(oldterm) 6 09/15/91 Given Diphth/Pertussis, Whl Cell/Tet(oldterm) 7 06/16/91 Given Diphth/Pertussis, Whl Cell/Tet(oldterm) 8 04/16/91 Given Haemophilus B conjugate (HbOC) vaccine 04/08/92 [facility] Haemophilus B conjugate (HbOC) vaccine 09/15/91 [facility] Haemophilus B conjugate (HbOC) vaccine 06/16/91 [facility] Haemophilus B conjugate (HbOC) vaccine 04/16/91 [facility] jan[facility] 1Admin Note: POLIO (ORAL ) 2Admin Note: POLIO (ORAL ) 3Admin Note: POLIO (ORAL ) 4Admin Note: POLIO (ORAL ) 5Admin Note: DTP 6Admin Note: DTP 7Admin Note: DTP 8Admin Note: DTP Medications fluticasone 50 mcg/inh nasal spray 1 sprays, Nares, Both, 2 times a day, # 1 each, 0 Refills, Maintenance, 01/01/23 12:47:00 EST, [place], [id number], Partial fill upon patient request if the prescription is for a schedule II opioid drug., 1 sprays Nares, Both 2 times a day,x30 d... Start Date: 01/01/23 Stop Date: 01/31/23 Status: Ordered Sertraline By Mouth, Daily, 0 Refills, Maintenance, 01/01/23 12:14:00 EST, Partial fill upon patient request if the prescription is for a schedule II opioid drug. Start Date: 01/01/23 Status: Ordered Ventolin HFA 108 mcg/inh inhalation aerosol with adapter 2 puffs, Inhalation, Every 4 hours, PRN for wheezing, shortness of breath or cough, # 1 each, 0 Refills, Maintenance, 01/01/23 14:04:00 EST, [facility], [id number], Partial fill upon patient request if the prescription is for a schedule II opioid... Start Date: 01/01/23 Stop Date: 01/31/23 Status: Ordered Problem List Condition Confirmation Course Effective Dates Status Health St atus Informant Depression Confirmed Active Overweight Confirmed Improving Active Diagnosis Diagnosis Type Effective Dates Health Status Cl inical Service Informant Cough Discharge Diagnosis 01/01/23 Blood pressure elevated without history of HTN Discharge Diagnosis 01/01/23 Vital Signs Most recent to oldest [Reference Range]: 1 Height 177.60 cm (01/01/23 12:14 PM) Oxygen Saturation [94-100 %] 96 % (01/01/23 12:14 PM) Pulse Rate [55-90 bpm] 77 bpm (01/01/23 12:14 PM) Blood Pressure [90-138/55-84 mm Hg] 145/ 92mm Hg *H* (01/01/23 12:14 PM) Respiratory Rate [16-30 br/min] 18 br/mi n (01/01/23 12:14 PM) Temperature [96.8-100.4 DegF] 97.9 DegF (01/01/23 12:14 PM) Mode of Delivery (Oxygen) Room air (01/01/23 12:14 PM) Blood pressure sites Arm, right (01/01/23 12:14 PM) Temperature Route Oral (01/01/23 12:14 PM) Patient Care team information Care Team Personnel Name: Aidan Minor MD Position: Reference Physician Member Role: PCP Address: Address: [address] [place] [address]- Care Team Related Persons Name: MONIQUE MONTOYA Address: [address] [place] [address]
[2023-01-14 04:59] LABS: Influenza A PCR NEGATIVE (Negative); Influenza B PCR NEGATIVE (Negative); Resp Syncy Virus RNA Qual PCR NEGATIVE (Negative); SARS COV2 PCR INHOUSE NEGATIVE (Negative)
[2023-01-14] MEDS: Amoxicillin 500 MG CAPSULE PO (05:43)
[2023-01-14 06:02] VITALS: BP 146/87; PULSE 72; RESP 16; TEMP 36.8; O2SAT 94
== END 2023-01-14 06:08 | disposition home or self-care (01) ==
PROVIDERS: Emergency Provider Emergency Medicine
DX: J02.0 Streptococcal pharyngitis (principal); H92.03 Otalgia, bilateral; Z79.899 Other long term (current) drug therapy; Z20.822 Contact with and (suspected) exposure to COVID-19; Z20.828 Contact with and (suspected) exposure to other viral communicable diseases
CPT/HCPCS: 0241U; 71045; 87651; 99283; 99284

== ENCOUNTER 2023-03-13 11:35 | Outpatient (REF) | payer OTHER, SELFPAY ==
[2023-03-13 11:38] LABS: MANUAL DIFF FLAG NO
[2023-03-13 12:05] LABS: Appearance Urine Clear; Basophils Absolute Auto 0.1 X10*3/uL (0.0-0.2); Basophils Percent Auto 1.2 % (0-2); Color Urine Yellow; Eosinophils Absolute Auto 0.3 X10*3/uL (0.0-0.4); Eosinophils Percent Auto 3.6 % (0-4); Glucose Urine UA Negative (Negative); Hematocrit 44.3 % (42.0-52.0); Hemoglobin 14.8 g/dl (14.0-18.0); Imm Gran Abs Auto 0.07 X10*3/uL (0.00-0.03); Imm Gran Pct Auto 0.9 % (0.0-0.4); Leukocyte Esterase Urine Trace (Negative); Lymphocytes Absolute Auto 2.5 X10*3/uL (1.2-4.9); Lymphocytes Percent Auto 32.7 % (20-40); Mean Corpuscular HGB Conc 33.4 g/dl (31.0-36.0); Mean Corpuscular Hemoglobin 29.9 pg (27.0-33.0); Mean Corpuscular Volume 89.5 fL (80.0-98.0); Mean Platelet Volume 9.5 fL (9.4-12.4); Monocytes Absolute Auto 0.8 X10*3/uL (0.1-1.2); Monocytes Percent Auto 10.6 % (2-11); Neutrophils Absolute Auto 3.9 x10*3/uL (2.0-8.3); Nitrite Urine Negative (Negative); Platelet Count 313 X10*3/uL (160-400); Red Blood Count 4.95 X10*6/uL (4.60-5.80); Specific Gravity - Urine 1.015 (1.005-1.025); UMIC TRIGGER UACC YES; Urine Blood Negative (Negative); Urine Ketones Negative (Negative); Urine Protein Negative (Neg-Trace); White Blood Count 7.6 X10*3/uL (4.8-10.8)
[2023-03-13 12:12] LABS: Bacteria Urine None Seen (None Seen); Hyaline Casts Urine 0-2 /LPF (0-2); RBC Urine 0-2 /HPF (0-2); Squamous Epithelial Cell Urine 0-2 /HPF (0-2); WBC Urine 0-5 /HPF (0-5)
[2023-03-13 12:47] LABS: Alanine Aminotransferase 45 U/L (0-40); Albumin Level 4.6 g/dL (3.5-5.0); Alkaline Phosphatase 53 U/L (39-117); Anion Gap 12 (12-20); Aspartate Amino Transferase 30 U/L (5-37); Bilirubin Total 0.7 mg/dL (0.0-1.0); Blood Urea Nitrogen 13 mg/dL (9-16); Calcium 9.7 mg/dL (8.4-10.2); Carbon Dioxide 27 mmol/L (22-29); Chloride 104 mmol/L (96-108); Cholesterol 214 mg/dL (<200); Estimated Glomerular Filt Rate > 60; Glucose Fasting 105 mg/dL (60-99); HDL Cholesterol 43 mg/dL (>40); LDL Cholesterol Calculated 135 mg/dL (<100); Potassium 4.2 mmol/L (3.3-5.1); Sodium 139 mmol/L (135-145); Total Protein 8.1 g/dL (6.5-8.0); Triglycerides 181 mg/dL (<150)
== END 2023-03-13 11:36 | disposition home or self-care (01) ==
LOC: HO.LNP 11:35
PROVIDERS: Visit Provider Internal Medicine
DX: Z00.00 Encounter for general adult medical examination without abnormal findings (principal)
CPT/HCPCS: 80053; 80061; 81001; 85025

== ENCOUNTER 2023-05-15 14:30 | Outpatient (AMB) | payer OTHER, SELFPAY ==
--- NOTE | 2023-05-15 14:32 | A.OFFVIS_ITS ---
Intake Vital Signs 05/15/23 14:45 Height 5 ft 11 in Weight 262 lb 5 oz BMI 36.6 BP 134/70 Blood Pressure Location Lt brachial Position Sitting Pulse 70 Pulse Source Pulse Oximeter Pulse Oximetry (%) 97 Oxygen Delivery Method Room Air Intake Visit Reasons: ENP-MANJIT - CONF w/address Intake Note: Patient presents for MANJIT. Wakes up a lot during the night and lots of loud snoring which wakes pt. up. Energy low during day and gets tired early. Allergies No Known Allergies Allergy (Verified 05/15/23 14:39) HPI HPI Comments History of Present Illness Details 32 y/o male patient presents for new in- person visit for sleep consultation. Pt reports loud snoring, and difficulty staying sleep. He wakes up a lot in the middle of night, wakes up 5-6 times. He gained 45 lb over the last 6 months. Pt reports lack of energy and can't do exercise. He has hard time focusing during daytime. Reports family hx of sleep apnea. Sleep questionnaire: Have you ever been diagnosed with a sleep disorder? No. Have you ever had a sleep study in the past? No. Have you ever been treated for a sleep disorder? No. Do you take medications for a sleep disorder? No. Do you snore? Yes. Do you wake up gasping at night? Yes, sometimes. Do you have episodes of apneas? Yes. If yes, are they witnessed? Yes. Do you have episodes of nocturnal chest pain or dyspnea? Yes, sometimes. Do you have difficulty initiating sleep? Yes. Do you have difficulty maintaining sleep? Yes. Do you wake up tired? Yes. Do you have headaches upon awakening? No. Do you wake up with dry mouth or throat? Yes, sometimes. Do you have GERD? No. Do you have nocturia? No. Do you have nocturnal leg cramps? No. Do you have symptoms of restless legs? Sometimes. Do you act out your dreams? No. Sleep hygiene questionnaire: What is your usual sleep routine? Usual bedtime is at 8:30-9:30 pm; Usual wake up time is at 6-6:30 am. Do you take naps? No. Is your sleep environment cool, dark, and quiet? Yes. Do you exercise? Not really. Do you take caffeine or other stimulants? Coffee in the morning. Do you use electronics in bed? Yes. What is your work schedule? 8:30 am-6 pm. Hypersomnolence questionnaire: Do you have daytime tiredness or fatigue? Yes. Do you easily fall asleep when inactive? No. Have you ever had episodes of sudden weakness? No. Have you ever had episodes of sudden weakness associated with strong emotions? No. PFSH Family History (Updated 05/15/23 @ 14:44 by Christine Kim CMA) Father Apnea Paternal Grandfather Apnea Dementia Paternal Grandmother Stroke Social History (Updated 05/15/23 @ 14:45 by Christine Kim CMA) Household Members: Children Housing: House Alcohol intake: former Patient Tobacco Use Status: Never used Tobacco Review of Systems Const All systems reviewed & are unremarkable except as noted in HPI and below Physical Exam Vital Signs: Last Vital Signs Pulse 70 05/15/23 14:45 BP 134/70 05/15/23 14:45 Pulse Ox 97 05/15/23 14:45 Oxygen Delivery Method Room Air 05/15/23 14:45 BMI result Body Mass Index 36.6 Const General: cooperative Nutritional Appearance: obese Orientation/consciousness: patient oriented x3 Resp Effort & Inspection: normal respiratory effort and able to speak in complete sentences Neuro General: patient oriented x3 and gait normal Cranial nerves: Yes CN's II-XII intact bilaterally Cognition (Neuro): normal cognition Gait exam (Neuro): Normal gait present Psych Appearance: grossly normal Mental Status: mental status grossly normal Speech and movement: Normal speech and movement present Affect: normal affect Attitude: cooperative Assessment & Plan Assessment & Plan (1) Loud snoring: Code(s): R06.83 - Snoring (2) Witnessed episode of apnea: Code(s): R06.81 - Apnea, not elsewhere classified (3) Daytime sleepiness: Code(s): R40.0 - Somnolence Plan Pt is advised to undergo home sleep study to assess for sleep apnea. Will f/u with pt after study to discuss results and appropriate treatment options. Pt to call with any worsening concerns or questions. Orders: Orders RT home sleep study Today R06.81 - Apnea, not elsewhere classified, R06.83 - Snoring, R40.0 - Somnolence Coding Level of Care Code New Pt Level 3 (21153) Diagnoses Loud snoring R06.83 Witnessed episode of apnea R06.81 Daytime sleepiness R40.0
[2023-05-15 14:45] VITALS: BP 134/70; PULSE 70; O2SAT 97; BMI 36.6
== END 2023-05-15 15:06 | disposition home or self-care (01) ==
PROVIDERS: PCP Internal Medicine; Visit Provider Nurse Practitioner Family
DX: R06.83 Snoring (principal); R06.81 Apnea, not elsewhere classified; R40.0 Somnolence
CPT/HCPCS: 99203

== ENCOUNTER → 2023-05-15 14:30 | Outpatient (BNVA) | payer OTHER, SELFPAY | PROVIDERS: PCP Internal Medicine; Visit Provider Nurse Practitioner Family ==

== ENCOUNTER 2023-06-21 16:32 | Inpatient (IN) | payer OTHER, SELFPAY ==
[2023-06-21 16:59] VITALS: BP 141/90; PULSE 129; RESP 18; TEMP 36.9; O2SAT 95; BMI 37.0
--- NOTE | 2023-06-21 17:00 | ED_ITS ---
HPI - Psych General Chief Complaint: Psychiatric Symptoms Stated Complaint: depression,crisis Time Seen by Provider: 06/21/23 17:42 History of Present Illness HPI Narrative: The patient is a 32-year-old male with a long-term history of depression and anxiety. He says he has been on sertraline for a long time. That is his only current medication. The medication as prescribed by his PCP, Dr. Minor. The patient says he has been feeling bad for years but particularly bad for several weeks. He says he has not left his house in the last week. He has had suicidal thoughts although he would not elaborate on what they were. He denies having done anything to this point. He denies any medical symptoms. Denies any fever, sweats, chills, cough, sputum, nausea, vomiting. Related Data Home Medications ?Medication ?Instructions ?Recorded ?Confirmed sertraline 100 mg tablet 100 mg PO BID 05/15/23 Previous Rx's ?Medication ?Instructions ?Recorded hydroxyzine HCl 25 mg tablet 25 mg PO TID PRN anxiety #7 tabs 03/21/20 omeprazole 20 mg capsule,delayed 20 mg PO DAILY 30 days #30 caps 12/14/20 release ondansetron 4 mg disintegrating 4 mg PO Q6-8H PRN nausea and 12/14/20 tablet vomiting #14 tabs amoxicillin 875 mg-potassium 1 tab PO Q12H #20 tabs 12/02/22 clavulanate 125 mg tablet amoxicillin 500 mg tablet 500 mg PO BID #20 tabs 01/14/23 Allergies Allergy/AdvReac Type Severity Reaction Status Date / Time No Known Allergies Allergy Verified 06/21/23 17:00 Review of Systems 2 Review of Systems: Yes all other systems are reviewed and are negative [facility] Family History Family History (Updated 05/15/23 @ 14:44 by Christine Kim CMA) Father Apnea Paternal Grandfather Apnea Dementia Paternal Grandmother Stroke Social History Social History (Updated 05/15/23 @ 14:45 by Christine Kim CMA) Household Members: Children Housing: House Alcohol intake: current Alcohol intake frequency: 3 or more drinks per day Alcohol type: hard liquor Patient Tobacco Use Status: Never used Tobacco Smoked in Last 30 Days: No Use of substances other than those prescribed or required for medical reasons: No Advance Directives: No Advance Directives Information Provided: No Physical Exam 2 Vital Signs: Vital Signs: Last Vital Signs Temp 98.7 F 06/21/23 23:25 Pulse 79 06/21/23 23:25 Resp 18 06/21/23 23:25 BP 128/87 06/21/23 23:25 Pulse Ox 97 06/21/23 23:25 O2 Del Method Room Air 06/21/23 23:25 BMI result Body Mass Index 37.0 Const: Other: The patient is awake and alert. He is cooperative. He seems mildly apprehensive but not acutely ill in any way. HEENT: Other: Face is symmetrical, mucous membranes moist Eyes: Other: Pupils are round equal, conjunctivae are clear, extraocular movements intact Neck: Other: Neck is supple, no JVD Resp: Effort & Inspection: normal respiratory effort Auscultation: clear to auscultation bilaterally Cardio: Rate: regular rate Rhythm: regular rhythm Heart sounds: S1 normal heart sound present and S2 normal heart sound present GI: Other: Abdomen is soft and nontender Skin: Other: Skin is dry and unremarkable Neuro: Other: The patient is awake, alert, oriented, appropriate. Cranial nerves 2-12 are intact. He moves all his extremities normally and appropriately. Coordination is intact and normal. Gait is normal. Extrem: Other: No peripheral edema Course Course Course Narrative: This is a rapid medical exam completed by Elina RAYAN: Additional HPI, ROS, PE not included below will be deferred to primary provider. Feeling suicidal Denies plan for suicide or homicidal ideations. Denies any pain, n/v/d, shortness of breath. Denies illicit substance use. Medications Administered Discontinued Medications Generic Name Dose Route Start Last Admin Trade Name Bola PRN Reason Stop Dose Admin Ibuprofen 600 mg 06/22/23 01:34 06/22/23 01:45 Ibuprofen 600 Mg Tablet PO 06/22/23 01:35 600 mg ONCE ONE Administration Lorazepam 2 mg 06/21/23 22:13 06/21/23 22:18 Lorazepam 1 Mg Tablet PO 06/21/23 22:14 2 mg ONCE ONE Administration Medical Decision Making Medical Decision Making [facility] Narrative: The patient is a 32-year-old who seems to describe a long history of feeling depressed. His symptoms have been more severe recently. He has not left his house in a week. He has some passive suicidal ideation. His physical exam is unremarkable. His labs are unremarkable except for his ETOH level of 271. I felt he was medically clear for evaluation by the care team. The care team deferred evaluation until an estimation of an ETOH level of 150 or less. This was done according to their protocol. Ultimately the patient was seen by 1 of the care team counselors. The recommendation is for keeping the patient at the hospital for psychiatric inpatient care given the patient's degree of depression and suicidal ideation. A section 12 will be filled out to keep the patient in the emergency room. At this point the patient is amenable to plan. The patient will be placed in physician observation and signed out to the oncoming providers. Lab Data 06/21/23 18:22 06/21/23 18:22 Labs: Lab Results 06/21/23 06/21/23 Range/Units 18:22 20:12 WBC 7.9 (4.8-10.8) X10*3/uL RBC 4.98 (4.60-5.80) X10*6/uL Hgb 15.2 (14.0-18.0) g/dl Hct 42.3 (42.0-52.0) % MCV 84.9 (80.0-98.0) fL MCH 30.5 (27.0-33.0) pg MCHC 35.9 (31.0-36.0) g/dl RDW 12.9 (11.0-16.0) % Plt Count 286 (160-400) X10*3/uL MPV 8.5 L (9.4-12.4) fL Immature Gran % (Auto) 0.3 (0.0-0.4) % Neut % (Auto) 36.3 L (45-73) % Lymph % (Auto) 50.4 H (20-40) % [place] % (Auto) 10.4 (2-11) % Eos % (Auto) 1.7 (0-4) % Baso % (Auto) 0.9 (0-2) % Lymph # (Auto) 4.0 (1.2-4.9) X10*3/uL [place] # (Auto) 0.8 (0.1-1.2) X10*3/uL Eos # (Auto) 0.1 (0.0-0.4) X10*3/uL Baso # (Auto) 0.1 (0.0-0.2) X10*3/uL Abs Immat Gran (auto) 0.02 (0.00-0.03) X10*3/uL Absolute Neuts (auto) 2.9 (2.0-8.3) x10*3/uL Absolute Nucleated RBC 0.000 (0.0-0.012) X10*3/uL Nucleated RBC % (auto) 0.0 (0.0-0.2) /100WBC Sodium 140 (135-145) mmol/L Potassium 3.3 D (3.3-5.1) mmol/L Chloride 105 (96-108) mmol/L Carbon Dioxide 20 L (22-29) mmol/L Anion Gap 18 (12-20) BUN 21 H (9-16) mg/dL Creatinine 1.10 (0.5-1.4) mg/dL Estim Creat Clear Calc 127.2 Estimated GFR > 60 Random Glucose 118 H (60-115) mg/dL Calcium 9.4 (8.4-10.2) mg/dL Total Bilirubin 0.2 (0.0-1.0) mg/dL AST 27 (5-37) U/L ALT 31 (0-40) U/L Alkaline Phosphatase 55 (39-117) U/L Total Protein 7.4 (6.5-8.0) g/dL Albumin 4.2 (3.5-5.0) g/dL Salicylates < 5.0 L (15-30) mg/dL Urine Opiates Screen Not Detected (Not Detect) Ur Buprenorphine Scrn Not Detected (Not Detect) ng/mL Ur Oxycodone Screen Not Detected (Not Detect) ng/mL Urine Methadone Screen Not Detected (Not Detect) ng/mL Urine Fentanyl Screen Not Detected (Not Detect) Acetaminophen < 3 (<30) mcg/mL Ur Barbiturates Screen Not Detected (Not Detect) Ur Phencyclidine Scrn Not Detected (Not Detect) Ur Amphetamines Screen Not Detected (Not Detect) U Benzodiazepines Scrn Not Detected (Not Detect) Urine Cocaine Screen Not Detected (Not Detect) U Marijuana (THC) Screen Not Detected (Not Detect) Ethyl Alcohol 271 mg/dL Discharge Plan Discharge Clinical Impression: Depression, Alcohol use disorder Patient Disposition: Still a Patient Prescriptions: No Action hydroxyzine HCl 25 mg tablet 25 mg PO TID PRN (Reason: anxiety) Qty: 7 0RF omeprazole 20 mg capsule,delayed release(DR/EC) 20 mg PO DAILY 30 Days Qty: 30 0RF ondansetron 4 mg tablet,disintegrating 4 mg PO Q6-8H PRN (Reason: nausea and vomiting) Qty: 14 0RF amoxicillin-pot clavulanate 875-125 mg tablet 1 tab PO Q12H Qty: 20 0RF amoxicillin 500 mg tablet 500 mg PO BID Qty: 20 0RF sertraline 100 mg tablet 100 mg PO BID Interventions: [place]-Suicide Risk Severity Scale Last Done: 06/21/23 18:52 Print Language: Canadian
--- OUTSIDE RECORDS SUMMARY | 2023-06-21 17:11 | XMS_ITS | Continuity of Care Document ---
Author Organization [facility] Address [address] [place] [address]- Care Team Providers Care Apparel Patternmaker Name Role Phone Aidan Minor MD Primary Care Physician [phone] Encounter [facility] Date(s): 01/13/23 - 02/12/23 [facility] [address] [place] [address]- Attending Physician: Boyd Valle Admitting Physician: AdmBoyd pelayo Referring Physician: AdmtrBoyd Allergies, Adverse Reactions, Alerts No Known Allergies [...] each, 0 Refills, Maintenance, 01/01/23 12:47:00 EST, [place], [id number], Partial fill upon patient request [...] Depression Confirmed Active Overweight Confirmed Improving Active Patient Care team information Care Team Personnel Name: Aidan Minor MD Position: Reference Physician Member Role: PCP Address: Address: [address] [place] [address] [place] [address]- Care Team Related Persons Name: MONIQUE MONTOYA Address: home [address] [place] [id number]
--- OUTSIDE RECORDS SUMMARY | 2023-06-21 17:11 | XMS_ITS | Continuity of Care Document ---
Author Organization [facility] Address [address] [place] [address]- Care Team Providers Care Dipper And Drier Name Role Phone Aidan Minor MD Primary Care Physician [phone] Encounter [facility] [id number] Date(s): 01/13/23 - 02/12/23 [facility] [address] [place] [address]- Attending Physician: Larisa Tolbert MD Referring Physician: Aidan Minor MD Allergies, [...] each, 0 Refills, Maintenance, 01/01/23 12:47:00 EST, [place], [id number], Partial fill upon patient request [...] Reference Physician Member Role: PCP Address: Address: [address] [place] [address] Aidan KaiseryoDENNIS ruff [address]- Care Team Related Persons Name: MONIQUE MONTOYA Address: home [address] [place] [id number]
--- OUTSIDE RECORDS SUMMARY | 2023-06-21 17:11 | XMS_ITS | Patient Health Record ---
Author Organization Aidan Minor MD Address [address] [place], [place] [id number] Care Team Providers Care Lead Radiologic Technologist Name Role Phone Aidan Minor Primary Care Provider ALLERGIES No Known Allergies RESULTS Component Value Reference Range Notes COVID-19 ID NOW ([place]) Reviewed date:12/02/2022 03:26:35 PM Interpretation: Performing Lab:[facility], [address] [place] [phone] Notes/Report: IDNOW Serial# [id number] COVID-19 Test Negative Negative COVID-19 Note See Note Results are for the identification of SARS-CoV2 RNA. The SARS-CoV2 RNA is generally detectable in respiratory samples during the acute phase of infection. Positive results are indicative of the presence of SARS-CoV-2 RNA; clinical correlation with patient history and other diagnostic information is necessary to determine patient infection status. Positive results do not rule out bacterial infection or co-infection with other viruses. Testing facilities within the [facility] and its territories are required to report all positive results to the appropriate public health authorities. Negative results should be treated as presumptive and, if inconsistent with clinical signs and symptoms or necessary for patient management, should be tested with different authorized or cleared molecular tests. Negative results do not preclude SARS-CoV2 RNA infection and should not be used as the sole basis for patient management decisions. Negative results should be considered in the context of a patient's recent exposures, history and the presence of clinical signs and symptoms consistent with COVID-19. This test has been authorized by the FDA under an Emergency Use Authorization (EUA) for use by authorized laboratories. Testing performed on the Livekick ID NOW utilizing NAAT. Strep A Nucleic Acid Reviewed date:12/02/2022 03:26:56 PM Interpretation: Performing Lab:[facility], [address] [place] [phone] Notes/Report: IDNOW Serial# [id number] Strep A Nucleic Acid Positive Negative All test results must be correlated with clinical findings. This test has not been evaluated for monitoring treatment of infection. Additional follow-up testing using the culture method is required if the result is negative and clinical symptoms persist, or in the event of an acute rheumatic fever outbreak. Rigo Grayson Reviewed date:03/13/2023 12:28:23 PM Interpretation: Performing Lab:[facility], [address] [place] [phone] Notes/Report: Rigo Grayson See Note Specimen held untested for 24 hours; Call to request Chemistry testing. Complete Blood Count Auto Di ff Reviewed date:03/13/2023 06:43:42 PM Interpretation: Performing Lab:[facility], [address] [place] [phone] Notes/Report: White Blood Count 7.6 4.8-10.8 X10*3/uL Red Blood Count 4.95 4.60-5.80 X10*6/uL Hemoglobin 14.8 14.0-18.0 g/dl Hematocrit 44.3 42.0-52.0 % Mean Corpuscular Volume 89.5 80.0-98.0 fL Mean Corpuscular Hemoglobin 29.9 27.0-33.0 pg Mean Corpuscular HGB Conc 33.4 31.0-36.0 g/dl Red Cell Distribution Width 12.0 11.0-16.0 % Platelet Count 313 160-400 X10*3/uL Mean Platelet Volume 9.5 9.4-12.4 fL Neutrophils Percent Auto 51.0 45-73 % Imm Gran Pct Auto 0.9 0.0-0.4 % Lymphocytes Percent Auto 32.7 20-40 % Monocytes Percent Auto 10.6 2-11 % Eosinophils Percent Auto 3.6 0-4 % Basophils Percent Auto 1.2 0-2 % NRBC Pct Auto 0.0 0.0-0.2 /100WBC Neutrophils Absolute Auto 3.9 2.0-8.3 x10*3/u L Imm Gran Abs Auto 0.07 0.00-0.03 X10*3/uL Lymphocytes Absolute Auto 2.5 1.2-4.9 X10*3/u L Monocytes Absolute Auto 0.8 0.1-1.2 X10*3/uL Eosinophils Absolute Auto 0.3 0.0-0.4 X10*3/u L Basophils Absolute Auto 0.1 0.0-0.2 X10*3/uL NRBC Abs Auto 0.000 0.0-0.012 X10*3/uL Comprehensive [place]. Panel Fa st Reviewed date:03/13/2023 06:49:10 PM Interpretation: Performing Lab:[facility], [address] [place] [phone] Notes/Report: Sodium 139 135-145 mmol/L Potassium 4.2 3.3-5.1 mmol/L Chloride 104 96-108 mmol/L Carbon Dioxide 27 22-29 mmol/L Anion Gap 12 12-20 Blood Urea Nitrogen 13 9-16 mg/dL Creatinine 1.06 0.5-1.4 mg/dL Estimated Glomerular Filt Rate > 60 NOTE: For -British individuals, multiply the result by 1.210. Chronic Kidney Disease: Estimated GFR < 60 mL/min/1.73m2 Severe Kidney Disease: Estimated GFR < 15 mL/min/1.73m2 Glucose Fasting 105 60-99 mg/dL A fasting glucose from 100-125 mg/dl is considered impaired (pre-diabetes). Calcium 9.7 8.4-10.2 mg/dL Bilirubin Total 0.7 0.0-1.0 mg/dL Aspartate Amino Transferase 30 5-37 U/L Alanine Aminotransferase 45 0-40 U/L Total Protein 8.1 6.5-8.0 g/dL Albumin Level 4.6 3.5-5.0 g/dL Alkaline Phosphatase 53 39-117 U/L Lipid Panel Reviewed date:03/13/2023 01:04:11 PM Interpretation: Performing Lab:[facility], [address] [place] [phone] Notes/Report: Triglycerides 181 <150 mg/dL Desirable Triglyceride: less than 150 mg/dL Borderline High Triglyceride 150-199 mg/dL High Triglyceride: 200-499 mg/dL Very High Triglyceride: greater than or equal to 5OO mg/dL Cholesterol 214 <200 mg/dL Desirable Cholesterol: less than 200 mg/dL Borderline High Cholesterol: 200-239 mg/dL High Cholesterol: greater than 239 mg/dL LDL Cholesterol Calculated 135 <100 mg/dL Desirable LDL: less than 100 mg/dL Near Optimal/Above Optimal LDL: 110-129 mg/dL Borderline High LDL: 130-159 mg/dL High LDL: 160-189 mg/dL Very High LDL: greater than or equal to 190 mg/dL HDL Cholesterol 43 >40 mg/dL Desirable HDL: greater than 40 mg/dL Note: This HDL assay may give artificially low results in patients with liver disease. UA ClnCatch+Micro w/rflx Cul t Reviewed date:03/13/2023 06:43:15 PM Interpretation: Performing Lab:[facility], [address] [place] [phone] Notes/Report: Urine, Clean Catch Color Urine Yellow Appearance Urine Clear PH 6.0 5.0-9.0 Glucose Urine UA Negative Negative mg/dL Urine Blood Negative Negative Specific [place] - Urine 1.015 1.005-1.025 Urine Protein Negative Neg-Trace mg/dL Urine Ketones Negative Negative mg/dL Nitrite Urine Negative Negative Leukocyte Esterase Urine Trace Negative RBC Urine 0-2 0-2 /HPF WBC Urine 0-5 0-5 /HPF Squamous Epithelial Cell Urine 0-2 0-2 /HPF Bacteria Urine None Seen None Seen Hyaline Casts Urine 0-2 0-2 /LPF REASON FOR REFERRAL Reason sleep apnea Diagnosis 1 Sleep apnea (G47.30) Referral Organization Aidan Minor MD Referring Provider First Name Aidan Referring Provider Last Name Iván Referring Provider Speciality Internal M edicine Referred Provider Yaima Wise Referred Provider Specialty Neurology General Notes Pepper Darden 11:46:04 AM EST > info faxed Katalina Annette 03/23/2023 11:32:37 AM EST > was told to refax info Katalina Annette 03/27/2023 12:52:14 PM EST > Called patient with info and mailed Referral Priority Routine Referral Appointment Date 05/15/2023 MEDICATIONS Medication SIG (Take, Route, Fr equency, Duration) Notes Start Date End Date Status Sertraline HCl 100 MG TAKE 2 TABLETS BY MOUTH EVERY DAY FOR 90 DAYS for 90 Active SOCIAL HISTORY Tobacco Use: Social History Observation Description Date Details (start date - stop date) Never Smoker NA - NA Sex Assigned At : Social History Observation Description Sex Assigned At Unknown Tobacco Use/Smoking Question Answer Notes Patient is a nonsmoker Additional Findings: Tobacco Non-User Cu rrent non-smoker, currently using no form of tobacco Alcohol Screen Question Answer Notes Did you have a drink containing alcohol in the p ast year? No Points 0 Interpretation Negative PROBLEMS Problem Type ICD Code Onset Dates Problem Status W/U Status Risk SNOMED Code Notes Problem Dysthymia (F34.1) Active confirmed Dysthymia (69309130) Problem Alcohol abuse (F10.10) Active confirmed 68118140 Problem Sleep apnea (G47.30) Active confirmed Sleep apnea (52782076) VITAL SIGNS Blood pressure diastolic 80 mm Hg 03/19/2023 megan ght is up 10 pounds since 09-18-22 Height 70 in 03/19/2023 weight is up 10 pounds since 09-18-22 Blood pressure systolic 112 mm Hg 03/19/2023 weig ht is up 10 pounds since 09-18-22 Weight 258 lbs 03/19/2023 weight is up 10 pounds since 09-18-22 BMI 37.02 kg/m2 03/19/2023 weight is up 10 pounds since 09-18-22 Encounters Encounter Location Date Provider Diagnosis Aidan Minor MD [address] [place] [id number] 03/19/2023 Aidan Minor Alcohol abuse F10.10 ; Annual physical exam Z00.00 ; Dysthymia F34.1 and Depression screening Z13.31 Aidan Minor MD [address] [place] [id number] 03/13/2023 Aidan Minor Blood tests for routine general physical examination Z00.00 Aidan Minor MD [address] [place] [id number] 09/18/2022 Aidan Minor Dysthymia F34.1 and Viral URI J06.9 Aidan Minor MD [address] [place] [id number] 09/26/2022 Aidan Minor Dysthymia F34.1 Aidan Minor MD [address] [place] [address] Drive [address] [place] [address] [id number] 09/26/2022 Aidan Minor MD [address] [place] [address] Drive [address] [place] [address] [id number] 10/05/2022 Aidan Minor MD [address] [place] [address] [place] [address] [id number] 03/20/2023 Aidan Minor ASSESSMENTS Encounter Date Diagnosis Assessment Notes Treatment Notes Treatment Clinical Notes 03/19/2023 Annual physical exam (ICD-10 - Z00.00) labs reviewed and discussed with patient 03/19/2023 Alcohol abuse (ICD-10 - F10.10) is in aa and doing well for one month 03/13/2023 Blood tests for routine general physical examination (ICD-10 - Z00.00) 09/18/2022 Dysthymia (ICD-10 - F34.1) 09/18/2022 Viral URI (ICD-10 - J06.9) 09/26/2022 Dysthymia (ICD-10 - F34.1) 03/19/2023 Dysthymia (ICD-10 - F34.1) stable at present, will continue current regiment and will continue to monitor 03/19/2023 Depression screening (ICD-10 - Z13.31) negative screen PLAN OF TREATMENT Next Appt Details Provider Name:Aidan fair, 09/17/2023 03:30:00 PM, [address] [place] [address], [address], [phone], Provider Name:Aidan fair, 03/14/2024 07:30:00 AM, [address] [place] [address], [address], [phone], Provider Name:Aidan fair, 03/21/2024 02:30:00 PM, [address] [place] [address], [address], [phone], Insurance Providers Payer Name Payer Address Payer Phone Subscriber Number Group Number Insured Name Patient Relationship to Insured Coverage Start Date Coverage End Date [facility] [address] [address] [place] [phone] [id number] HENOK MONTOYA Self - patient is the insured
[2023-06-21 18:26] LABS: MANUAL DIFF FLAG NO
[2023-06-21 18:27] LABS: Basophils Absolute Auto 0.1 X10*3/uL (0.0-0.2); Basophils Percent Auto 0.9 % (0-2); Eosinophils Absolute Auto 0.1 X10*3/uL (0.0-0.4); Eosinophils Percent Auto 1.7 % (0-4); Hematocrit 42.3 % (42.0-52.0); Hemoglobin 15.2 g/dl (14.0-18.0); Imm Gran Abs Auto 0.02 X10*3/uL (0.00-0.03); Imm Gran Pct Auto 0.3 % (0.0-0.4); Lymphocytes Percent Auto 50.4 % (20-40); Mean Corpuscular HGB Conc 35.9 g/dl (31.0-36.0); Mean Corpuscular Hemoglobin 30.5 pg (27.0-33.0); Mean Corpuscular Volume 84.9 fL (80.0-98.0); Mean Platelet Volume 8.5 fL (9.4-12.4); Monocytes Absolute Auto 0.8 X10*3/uL (0.1-1.2); Monocytes Percent Auto 10.4 % (2-11); Neutrophils Absolute Auto 2.9 x10*3/uL (2.0-8.3); Neutrophils Percent Auto 36.3 % (45-73); Platelet Count 286 X10*3/uL (160-400); Red Blood Count 4.98 X10*6/uL (4.60-5.80); Red Cell Distribution Width 12.9 % (11.0-16.0); White Blood Count 7.9 X10*3/uL (4.8-10.8)
[2023-06-21 18:41] LABS: Alanine Aminotransferase 31 U/L (0-40); Albumin Level 4.2 g/dL (3.5-5.0); Alkaline Phosphatase 55 U/L (39-117); Anion Gap 18 (12-20); Aspartate Amino Transferase 27 U/L (5-37); Bilirubin Total 0.2 mg/dL (0.0-1.0); Blood Urea Nitrogen 21 mg/dL (9-16); Calcium 9.4 mg/dL (8.4-10.2); Carbon Dioxide 20 mmol/L (22-29); Chloride 105 mmol/L (96-108); Creatinine Clr Calc Pharmacy 127.2; Estimated Glomerular Filt Rate > 60; Ethanol 271 mg/dL; Glucose Random 118 mg/dL (60-115); Potassium 3.3 mmol/L (3.3-5.1); Sodium 140 mmol/L (135-145); Total Protein 7.4 g/dL (6.5-8.0)
[2023-06-21 18:42] LABS: Acetaminophen LAB < 3 mcg/mL (<30); Salicylate < 5.0 mg/dL (15-30)
[2023-06-21 19:27] VITALS: BP 132/83; PULSE 108; RESP 17; TEMP 37.1; O2SAT 94
[2023-06-21 20:27] LABS: Amphetamine Screen Urine Not Detected (Not Detect); Barbiturates, Urine Not Detected (Not Detect); Benzodiazepines Screen Urine Not Detected (Not Detect); Buprenorphine Scr Not Detected (Not Detect); Cannabinoid Screen Urine Not Detected (Not Detect); Cocaine Screen Urine Not Detected (Not Detect); Fentanyl, urine Not Detected (Not Detect); Methadone Screen, Urine Not Detected (Not Detect); Opiate Screen Urine Not Detected (Not Detect); Oxycodone Screen Urine Not Detected (Not Detect); Phencyclidine Screen Urine Not Detected (Not Detect)
[2023-06-21] MEDS: LORazepam 1 MG TABLET 2 MG PO (22:18)
[2023-06-21 23:25] VITALS: BP 128/87; PULSE 79; RESP 18; TEMP 37.1; O2SAT 97
[2023-06-22] MEDS: Ibuprofen 600 MG TABLET PO (01:45)
--- NOTE | 2023-06-22 02:26 | PC.NURSE ---
CARE team at bedside speaking with pt.
--- NOTE | 2023-06-22 02:33 | PC.NURSE ---
Plan for inpatient admission and section 12, per CARE team.
[2023-06-22 04:04] VITALS: BP 137/81; PULSE 68; RESP 18; O2SAT 98
[2023-06-22] MEDS: LORazepam 1 MG TABLET 2 MG PO (04:11)
[2023-06-22 06:06] VITALS: RESP 16
[2023-06-22 10:52] LABS: Appearance Urine Clear; Color Urine Yellow; Glucose Urine UA Negative (Negative); Leukocyte Esterase Urine Trace (Negative); Nitrite Urine Negative (Negative); Specific Gravity - Urine >= 1.030 (1.005-1.025); UMIC TRIGGER UACC YES; Urine Blood Negative (Negative); Urine Ketones Trace mg/dL (Negative); Urine Protein 30 (1+) mg/dL (Neg-Trace)
[2023-06-22 10:54] LABS: Bacteria Urine None Seen (None Seen); Hyaline Casts Urine 0-2 /LPF (0-2); RBC Urine 0-2 /HPF (0-2); Squamous Epithelial Cell Urine 0-2 /HPF (0-2); WBC Urine 0-5 /HPF (0-5)
--- NOTE | 2023-06-22 11:48 | ECG_ITS ---
Test Reason : qtc prolongation Blood Pressure : / mmHG Vent. Rate : 067 BPM Atrial Rate : 067 BPM P-R Int : 170 ms QRS Dur : 084 ms QT Int : 392 ms P-R-T Axes : 041 -09 -04 degrees QTc Int : 414 ms Artifact in tracing Normal sinus rhythm Minimal voltage criteria for LVH, may be normal variant ( R in aVL ) Borderline ECG When compared with ECG of 21-MAR-2020 06:33, Criteria for Inferior infarct are no longer Present Nonspecific T wave abnormality no longer evident in Anterolateral leads Referred By: Jyoti Dominguez Electronically Signed By:SHEMAR GRIFFITH
[2023-06-22 15:06] VITALS: BP 140/89; PULSE 88; RESP 16; TEMP 36.9; O2SAT 97
[2023-06-22 17:43] VITALS: BP 149/95; PULSE 92; RESP 16; TEMP 36.9; O2SAT 98
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
[2023-06-22 20:00] VITALS: BP 154/97; PULSE 72; RESP 16; TEMP 36.9; O2SAT 97
--- NOTE | 2023-06-22 20:15 | PC.ADMIT ---
Addendum entered by Gaye Chery RN 06/22/23 20:33: Pt presented to the ER secondary to increased depression , suicidal ideation and alcohol intoxication. Pt reports a long history of depression. He states the last two weeks have been the worst ever. He reports not leaving his house all week long. Pt had a BAL of 271. He reports drinking for two days straight . Precipitating Factors: Pt stated that nothing has triggered a worsening of his depression .He has battled depression for the past several years. He currently takes sertraline which is prescribed by his PCP. Pt reports his daily drinking of alcohol has increased. He acknowledged that he drinks more often when he has been more depressed. He reports no community based providers. He has attended AA in the past. He said that he is having more suicidal thoughts now then ever before. Pt denies homicidal ideation. Pt currently denies auditory or visual hallucinations . Pt reports not sleeping enough due to sleep apnea severely affecting him. He reports awaking at least 9 times a night. He stated that he is having some additional testing for his sleep apnea later in in the month. Pt said his appetite is good. Pt reports increasing depression that is so severe that he just stayed in all week, and for the past few days he reports drinking vodka all day. Pt did states that he realizes that he drinks more when depressed but he does not know what is triggering his depression. During admission, pt was guarded, and quiet. He reports depression 8/10, anxiety 7/10, reports passive Si w/ no plan averbalizes he can come to staff if feeling unsafe. Pt denies si/hi/avh or current withdrawal symptoms. Pt has a CIWA ordered and placed on 15min checks for safety.? Pt?s CV accepted.? Original Note: pt arrived on the unit @ 13:33 via wheelchair. Skin check performed, vitals obtained, menus completed, and pt oriented to the unit.
[2023-06-22] MEDS: Folic Acid 1 MG TABLET PO (20:35)
[2023-06-22] MEDS: Thiamine HCL 100 MG TABLET PO (20:36)
[2023-06-22] MEDS: Multivitamin TABLET 1 TAB PO (20:36)
--- NOTE | 2023-06-22 20:43 | PC.NURSE ---
provider entered order for 2ltr Oxygen at . Notified nursing Supervisor Special Education Kary Tarango via [employer] @ 20:00 obtain a concentrator. Message was read but as of 20:45 has not been reponded to. Information passed on verbally to nurse accepting care of the patient.
--- NOTE | 2023-06-22 20:51 | PC.NURSE ---
spoke to respiratory. When we're done in ER we'll bring one up .
[2023-06-23] MEDS: hydrOXYzine HCL 25 MG TABLET PO (06:41)
[2023-06-23 07:51] VITALS: BP 132/88; PULSE 68; RESP 16; TEMP 36.9; O2SAT 98
[2023-06-23 07:58] LABS: Estimated Average Glucose 103 mg/dL; Hemoglobin A1c % 5.2 % (<6.0)
[2023-06-23 08:07] LABS: Cholesterol 205 mg/dL (<200); HDL Cholesterol 59 mg/dL (>40); LDL Cholesterol Calculated 102 mg/dL (<100); Magnesium 1.9 mg/dL (1.6-2.6); Triglycerides 222 mg/dL (<150)
[2023-06-23] MEDS: Thiamine HCL 100 MG TABLET PO (08:17)
[2023-06-23] MEDS: Multivitamin TABLET 1 TAB PO (08:17)
[2023-06-23] MEDS: Sertraline HCL 100 MG TABLET PO (08:17)
[2023-06-23] MEDS: Folic Acid 1 MG TABLET PO (08:17)
[2023-06-23 08:21] LABS: Free T4 (Free Thyroxine) 1.07 ng/dL (0.71-1.85); Thyroid Stimulating Hormone 1.49 uIU/mL (0.32-4.0)
[2023-06-23 08:30] LABS: Folate 13.9 ng/mL (> or = 4.0); Vitamin B12 414 pg/mL (200-900)
[2023-06-23] MEDS: Acetaminophen 325 MG TABLET 650 MG PO (13:25)
--- NOTE | 2023-06-23 15:30 | P.PNPSI_ITS ---
Subjective Subjective Date of Service: 06/23/23 Reason For Visit: depression,si alcohol use disorder Interim History: Met with patient. Discussed with Nursing. Patient very open around depression, and alcohol use disorder. Reports still feeling depressed. Reports wanting therapy and also mentioned EMDR modality. Sleep less. Motivation and energy low. Intermittent hopelessness. Has been on Zoloft 100 mg for 2 years and has been as high as 200 mg. regarding alcohol use disorder does have blocks of time up to 10 months. Has never been on naltrexone, but willing to consider same. Overall we discussed scheduling trazodone 50 mg at bedtime and 50 mg as needed, while also increasing Zoloft to 150 mg. Will give information regarding naltrexone so patient can consider same. Review of Systems Review of Systems Yes all other systems are reviewed and are negative Mental Status Exam Mental Status Exam Narrative: Pleasant. Engaged. Casually dressed resent. Good hygiene. Organized. Depressed. No SI. No HI. Intermittent hopelessness. No agitation. No psychosis. Insight and judgment fair Diagnostics Vital Signs (24Hr): Vital Signs - 24 hr 06/22/23 17:43 06/22/23 20:00 06/23/23 07:51 Temperature 98.4 F 98.4 F 98.4 F Pulse Rate 92 72 68 Respiratory Rate 16 16 16 Blood Pressure 149/95 H 154/97 H 132/88 Pulse Oximetry 98 97 98 Oxygen Delivery Method Room Air Room Air Room Air BMI result Body Mass Index 37.0 Labs 06/21/23 18:22 06/21/23 18:22 Labs: Laboratory Results - last 48 hr 06/21/23 06/21/23 06/22/23 18:22 20:12 10:36 WBC 7.9 RBC 4.98 Hgb 15.2 Hct 42.3 MCV 84.9 MCH 30.5 MCHC 35.9 RDW 12.9 Plt Count 286 MPV 8.5 L Immature Gran % (Auto) 0.3 Neut % (Auto) 36.3 L Lymph % (Auto) 50.4 H [place] % (Auto) 10.4 Eos % (Auto) 1.7 Baso % (Auto) 0.9 Lymph # (Auto) 4.0 [place] # (Auto) 0.8 Eos # (Auto) 0.1 Baso # (Auto) 0.1 Abs Immat Gran (auto) 0.02 Absolute Neuts (auto) 2.9 Absolute Nucleated RBC 0.000 Nucleated RBC % (auto) 0.0 Sodium 140 Potassium 3.3 D Chloride 105 Carbon Dioxide 20 L Anion Gap 18 BUN 21 H Creatinine 1.10 Estim Creat Clear Calc 127.2 Estimated GFR > 60 Random Glucose 118 H Estimat Average Glucose Hemoglobin A1c % Calcium 9.4 Magnesium Total Bilirubin 0.2 AST 27 ALT 31 Alkaline Phosphatase 55 Total Protein 7.4 Albumin 4.2 Triglycerides Cholesterol LDL Cholesterol, Calc HDL Cholesterol Vitamin B12 Folate TSH Free T4 Urine Color Yellow Urine Appearance Clear Urine pH 6.0 Ur Specific [place] >= 1.030 H Urine Protein 30 (1+) H Urine Glucose (UA) Negative Urine Ketones Trace Urine Blood Negative Urine Nitrite Negative Ur Leukocyte Esterase Trace H Urine RBC 0-2 Urine WBC 0-5 Ur Squamous Epith Cells 0-2 Urine Bacteria None Seen Hyaline Casts 0-2 Salicylates < 5.0 L Urine Opiates Screen Not Detected Ur Buprenorphine Scrn Not Detected Ur Oxycodone Screen Not Detected Urine Methadone Screen Not Detected Urine Fentanyl Screen Not Detected Acetaminophen < 3 Ur Barbiturates Screen Not Detected Ur Phencyclidine Scrn Not Detected Ur Amphetamines Screen Not Detected U Benzodiazepines Scrn Not Detected Urine Cocaine Screen Not Detected U Marijuana (THC) Screen Not Detected Ethyl Alcohol 271 06/23/23 07:25 WBC RBC Hgb Hct MCV MCH MCHC RDW Plt Count MPV Immature Gran % (Auto) Neut % (Auto) Lymph % (Auto) [place] % (Auto) Eos % (Auto) Baso % (Auto) Lymph # (Auto) [place] # (Auto) Eos # (Auto) Baso # (Auto) Abs Immat Gran (auto) Absolute Neuts (auto) Absolute Nucleated RBC Nucleated RBC % (auto) Sodium Potassium Chloride Carbon Dioxide Anion Gap BUN Creatinine Estim Creat Clear Calc Estimated GFR Random Glucose Estimat Average Glucose 103 Hemoglobin A1c % 5.2 Calcium Magnesium 1.9 Total Bilirubin AST ALT Alkaline Phosphatase Total Protein Albumin Triglycerides 222 H Cholesterol 205 H LDL Cholesterol, Calc 102 H HDL Cholesterol 59 Vitamin B12 414 Folate 13.9 TSH 1.49 Free T4 1.07 Urine Color Urine Appearance Urine pH Ur Specific [place] Urine Protein Urine Glucose (UA) Urine Ketones Urine Blood Urine Nitrite Ur Leukocyte Esterase Urine RBC Urine WBC Ur Squamous Epith Cells Urine Bacteria Hyaline Casts Salicylates Urine Opiates Screen Ur Buprenorphine Scrn Ur Oxycodone Screen Urine Methadone Screen Urine Fentanyl Screen Acetaminophen Ur Barbiturates Screen Ur Phencyclidine Scrn Ur Amphetamines Screen U Benzodiazepines Scrn Urine Cocaine Screen U Marijuana (THC) Screen Ethyl Alcohol Medications Medications Current Medications Acetaminophen (Acetaminophen 325 Mg Tablet) 650 mg PO Q6H PRN PRN Reason: Headache/Pain Mild Scale (1-3) Last Admin: 06/23/23 13:25 Dose: 650 mg Al Hydroxide/Mg Hydroxide (Magnesium Hydrox/Alum Hydrox 30 Ml Oral.Susp) 30 ml PO Q6H PRN PRN Reason: Heartburn/Nausea Folic Acid (Folic Acid 1 Mg Tablet) 1 mg PO DAILY [facility] Last Admin: 06/23/23 08:17 Dose: 1 mg Hydroxyzine HCl (Hydroxyzine Hcl 25 Mg Tablet) 25 mg PO Q6H PRN PRN Reason: Anxiety Last Admin: 06/23/23 06:41 Dose: 25 mg Lorazepam (Lorazepam 1 Mg Tablet) 1 mg PO Q2H PRN PRN Reason: CIWA 6-10 Lorazepam (Lorazepam 1 Mg Tablet) 2 mg PO Q2H PRN PRN Reason: CIWA 10-16 Magnesium Hydroxide (Milk Of Magnesia 30 Ml Oral.Susp) 30 ml PO DAILY PRN PRN Reason: Constipation Multivitamins/Vitamin C (Multivitamin Tablet) 1 tab PO DAILY [facility] Last Admin: 06/23/23 08:17 Dose: 1 tab Sertraline HCl (Sertraline Hcl 100 Mg Tablet) 100 mg PO DAILY [facility] Last Admin: 06/23/23 08:17 Dose: 100 mg Thiamine HCl (Thiamine Hcl 100 Mg Tablet) 100 mg PO DAILY [facility] Last Admin: 06/23/23 08:17 Dose: 100 mg Trazodone HCl (Trazodone Hcl 50 Mg Tablet) 50 mg PO BEDTIME MRX1 PRN PRN Reason: Insomnia Allergies Allergies Allergy/AdvReac Type Severity Reaction Status Date / Time No Known Allergies Allergy Verified 06/21/23 17:00 Assessment & Plan Assessment & Plan (1) PTSD (post-traumatic stress disorder): Status: Acute Code(s): F43.10 - Post-traumatic stress disorder, unspecified (2) Depression: Status: Acute Code(s): F32.A - Depression, unspecified (3) Alcohol use disorder: Status: Acute Code(s): F10.90 - Alcohol use, unspecified, uncomplicated (4) MANJIT (obstructive sleep apnea): Status: Acute Code(s): G47.33 - Obstructive sleep apnea (adult) (pediatric) Plan 32 yo male, hx of PTSD, Depression, Alcohol Use, MANJIT looking for assistance to re-establish his health, improve his parenting and manage PTSD sx. Requests referrals for psychotherapy, EMDR and will re-establish himself with AA. Plan: Continue Sertraline, futher psychopharm as detox completes. Ativan detox protocol Addiction consult Aftercare planning 06/22: Overall we discussed scheduling trazodone 50 mg at bedtime and 50 mg as needed, while also increasing Zoloft to 150 mg. Will give information regarding naltrexone so patient can consider same Reason for continued inpatient stay Substantial Risk for: harm to self Time Spent With Patient Time: Total time managing care of this patient today ____ minutes.
[2023-06-23 20:00] VITALS: BP 146/89; PULSE 73; RESP 18; TEMP 36.4; O2SAT 98
[2023-06-23] MEDS: traZODone HCL 50 MG TABLET PO (20:42)
[2023-06-24] MEDS: Thiamine HCL 100 MG TABLET PO (08:13)
[2023-06-24] MEDS: Sertraline HCL 100 MG TABLET PO (08:13)
[2023-06-24] MEDS: Folic Acid 1 MG TABLET PO (08:13)
[2023-06-24] MEDS: Multivitamin TABLET 1 TAB PO (08:13)
[2023-06-24 08:17] VITALS: BP 133/81; PULSE 75; RESP 16; TEMP 36.4; O2SAT 97
[2023-06-24] MEDS: Acetaminophen 325 MG TABLET 650 MG PO ×3 (09:25→21:34)
--- NOTE | 2023-06-24 10:40 | P.PNPSI_ITS ---
Subjective Subjective Date of Service: 06/24/23 Reason For Visit: depression,si alcohol use disorder Interim History: Met with patient. Discussed with Nursing. ongoing depression. Hopeful around Zoloft increased. Feeling supported and sponsor will be visiting today whom he is worked with for the last 2 years. Reflected on periods of sobriety in the past and being capable of same again moving forward. Sleep still broken. Sleep apnea study arranged as an outpatient this month. Trazodone last night caused strange dreams and prefers not to have this again. Gave written information on naltrexone, which he will review. Medication Compliance: Yes Side effects from medications: No Attending Groups: Yes Review of Systems Acute medical concerns: No Review of Systems Review of Systems Nothing acute Mental Status Exam Mental Status Exam Narrative: Pleasant. Engaged. Casually dressed resent. Good hygiene. Organized. Depressed. No SI. No HI. Intermittent hopelessness. No agitation. No psychosis. Insight and judgment fair Diagnostics Vital Signs (24Hr): Vital Signs - 24 hr 06/23/23 20:00 06/24/23 08:17 Temperature 97.6 F 97.5 F Pulse Rate 73 75 Respiratory Rate 18 16 Blood Pressure 146/89 H 133/81 Pulse Oximetry 98 97 Oxygen Delivery Method Room Air Room Air BMI result Body Mass Index 37.0 Labs 06/21/23 18:22 06/21/23 18:22 Labs: Laboratory Results - last 48 hr 06/22/23 06/23/23 10:36 07:25 Estimat Average Glucose 103 Hemoglobin A1c % 5.2 Magnesium 1.9 Triglycerides 222 H Cholesterol 205 H LDL Cholesterol, Calc 102 H HDL Cholesterol 59 Vitamin B12 414 Folate 13.9 TSH 1.49 Free T4 1.07 Urine Color Yellow Urine Appearance Clear Urine pH 6.0 Ur Specific [place] >= 1.030 H Urine Protein 30 (1+) H Urine Glucose (UA) Negative Urine Ketones Trace Urine Blood Negative Urine Nitrite Negative Ur Leukocyte Esterase Trace H Urine RBC 0-2 Urine WBC 0-5 Ur Squamous Epith Cells 0-2 Urine Bacteria None Seen Hyaline Casts 0-2 Medications Medications Current Medications Acetaminophen (Acetaminophen 325 Mg Tablet) 650 mg PO Q6H PRN PRN Reason: Headache/Pain Mild Scale (1-3) Last Admin: 06/24/23 09:25 Dose: 650 mg Al Hydroxide/Mg Hydroxide (Magnesium Hydrox/Alum Hydrox 30 Ml Oral.Susp) 30 ml PO Q6H PRN PRN Reason: Heartburn/Nausea Folic Acid (Folic Acid 1 Mg Tablet) 1 mg PO DAILY [facility] Last Admin: 06/24/23 08:13 Dose: 1 mg Hydroxyzine HCl (Hydroxyzine Hcl 25 Mg Tablet) 25 mg PO Q6H PRN PRN Reason: Anxiety Last Admin: 06/23/23 06:41 Dose: 25 mg Lorazepam (Lorazepam 1 Mg Tablet) 1 mg PO Q2H PRN PRN Reason: CIWA 6-10 Lorazepam (Lorazepam 1 Mg Tablet) 2 mg PO Q2H PRN PRN Reason: CIWA 10-16 Magnesium Hydroxide (Milk Of Magnesia 30 Ml Oral.Susp) 30 ml PO DAILY PRN PRN Reason: Constipation Multivitamins/Vitamin C (Multivitamin Tablet) 1 tab PO DAILY [facility] Last Admin: 06/24/23 08:13 Dose: 1 tab Sertraline HCl (Sertraline Hcl 50 Mg Tablet) 150 mg PO DAILY [place] Thiamine HCl (Thiamine Hcl 100 Mg Tablet) 100 mg PO DAILY [facility] Last Admin: 06/24/23 08:13 Dose: 100 mg Trazodone HCl (Trazodone Hcl 50 Mg Tablet) 50 mg PO BEDTIME MRX1 PRN PRN Reason: Insomnia Last Admin: 06/23/23 20:42 Dose: 50 mg Trazodone HCl (Trazodone Hcl 100 Mg Tablet) 100 mg PO BEDTIME [facility] Allergies Allergies Allergy/AdvReac Type Severity Reaction Status Date / Time No Known Allergies Allergy Verified 06/21/23 17:00 Assessment & Plan Assessment & Plan (1) PTSD (post-traumatic stress disorder): Status: Acute Code(s): F43.10 - Post-traumatic stress disorder, unspecified (2) Depression: Status: Acute Code(s): F32.A - Depression, unspecified (3) Alcohol use disorder: Status: Acute Code(s): F10.90 - Alcohol use, unspecified, uncomplicated (4) MANJIT (obstructive sleep apnea): Status: Acute Code(s): G47.33 - Obstructive sleep apnea (adult) (pediatric) Plan 32 yo male, hx of PTSD, Depression, Alcohol Use, MANJIT looking for assistance to re-establish his health, improve his parenting and manage PTSD sx. Requests referrals for psychotherapy, EMDR and will re-establish himself with AA. Plan: Continue Sertraline, futher psychopharm as detox completes. Ativan detox protocol Addiction consult Aftercare planning 06/22: Overall we discussed scheduling trazodone 50 mg at bedtime and 50 mg as needed, while also increasing Zoloft to 150 mg. 06/23: Gave written information regarding naltrexone so patient can consider same Reason for continued inpatient stay Substantial Risk for: harm to self Time Spent With Patient Time: Total time managing care of this patient today ____ minutes.
[2023-06-24] MEDS: Sertraline HCL 50 MG TABLET PO (10:47)
--- NOTE | 2023-06-24 12:16 | MHC.RECOVRN ---
Met with pt in following consult placed to Addiction Medicine for AUD.? Chart review completed and received report from floor nurse Manuela Pt had presented to the ED with depression, SI and ETOH intoxication.? Pt was admitted to the floor for psych stabilization.? Upon assessment pt is awake and alert.? He denies any W/D sx and none observed.?? Pt reports he has been in and out of recovery for several years and has been drinking regularly since his early 20?s.? Just prior to this hospitalization pt reports he was drinking a sleeve of 100 proof nips/day. Pt reports that he has a significant h/o addiction in his family on both mother and father side.? His longest period of recovery was for 10 months.? He identifies his JENNIFER?s resulting in PTSD as a significant trigger to use and is actively looking for therapy support including EMDR.? He denies any other substance use except some recreational cocaine use in the past. Pt is interested in outpatient therapy to treat his Mental health issues that contribute to his use.? He is also open minded to [facility] and was given written education on options.? Verbal education also provided.? T/W provided pt with multiple community resources along with information on how to F/U on his medical concerns.? ?? Pt declines any further need for services at this time ACS available throughout pt?s stay. Report to ?ACS team.
[2023-06-24 19:36] VITALS: BP 142/75; PULSE 79; RESP 16; TEMP 37.1; O2SAT 97
[2023-06-25 08:05] VITALS: BP 146/76; PULSE 70; RESP 16; TEMP 36.4; O2SAT 99
[2023-06-25] MEDS: Multivitamin TABLET 1 TAB PO (08:35)
[2023-06-25] MEDS: Thiamine HCL 100 MG TABLET PO (08:35)
[2023-06-25] MEDS: Sertraline HCL 50 MG TABLET 150 MG PO (08:35)
[2023-06-25] MEDS: Folic Acid 1 MG TABLET PO (08:35)
--- NOTE | 2023-06-25 10:12 | P.PNPSI_ITS ---
Subjective Subjective Date of Service: 06/25/23 Reason For Visit: depression,si alcohol use disorder Interim History: met with patient; discussed with team; reviewed chart pt says depression better, now a 5/10 when before admission it was a 10/10; SI resolved. Discussed hx and no evidence of hx manic type episodes. Longest time of sobriety is 10months; during this time, still depressed and anxious but not as much; however, it always worsens in fall and winter at which time he starts to lose hope and eventually relapses on alcohol. Hx of trauma contributes and pt feels need to address mouch more in therapy Does not want naltrexone; very involved in AA and has sponsor; not much cravings but just relief from depression that triggers relapse Feels good about staying on Zoloft 150mg for now. wants to address potential MANJIT (whole family has it) Mental Status Exam Mental Status Exam Narrative: Pt is alert and oriented; behavior is cooperative, friendly, but quite anxious and sweaty; patient is not in distress; dressed in casual attire with with adequate hygiene; mood is described as depressed... Anxious and affect congruent, anxious; eye contact appropriate; Speech is normal rate, volume and prosody and not pressured; no psychomotor agitation/retardation present; thought process is organized and goal directed; Thought content is on tx; otherwise pertinent to relevant topics and without any delusional content, paranoid ideations or grandiosity; denies any SI/HI. There is no evidence of perceptual disturbance. Patients insight and judgment impaired but improving. Diagnostics Vital Signs (24Hr): Vital Signs - 24 hr 06/24/23 19:36 06/25/23 08:05 Temperature 98.7 F 97.6 F Pulse Rate 79 70 Respiratory Rate 16 16 Blood Pressure 142/75 H 146/76 H Pulse Oximetry 97 99 Oxygen Delivery Method Room Air Room Air BMI result Body Mass Index 37.0 Labs 06/21/23 18:22 06/21/23 18:22 Medications Medications Current Medications Acetaminophen (Acetaminophen 325 Mg Tablet) 650 mg PO Q6H PRN PRN Reason: Headache/Pain Mild Scale (1-3) Last Admin: 06/24/23 21:34 Dose: 650 mg Al Hydroxide/Mg Hydroxide (Magnesium Hydrox/Alum Hydrox 30 Ml Oral.Susp) 30 ml PO Q6H PRN PRN Reason: Heartburn/Nausea Folic Acid (Folic Acid 1 Mg Tablet) 1 mg PO DAILY [facility] Last Admin: 06/25/23 08:35 Dose: 1 mg Hydroxyzine HCl (Hydroxyzine Hcl 25 Mg Tablet) 25 mg PO Q6H PRN PRN Reason: Anxiety Last Admin: 06/23/23 06:41 Dose: 25 mg Magnesium Hydroxide (Milk Of Magnesia 30 Ml Oral.Susp) 30 ml PO DAILY PRN PRN Reason: Constipation Multivitamins/Vitamin C (Multivitamin Tablet) 1 tab PO DAILY [facility] Last Admin: 06/25/23 08:35 Dose: 1 tab Sertraline HCl (Sertraline Hcl 50 Mg Tablet) 150 mg PO DAILY [facility] Last Admin: 06/25/23 08:35 Dose: 150 mg Thiamine HCl (Thiamine Hcl 100 Mg Tablet) 100 mg PO DAILY [facility] Last Admin: 06/25/23 08:35 Dose: 100 mg Trazodone HCl (Trazodone Hcl 50 Mg Tablet) 50 mg PO BEDTIME MRX1 PRN PRN Reason: Insomnia Last Admin: 06/23/23 20:42 Dose: 50 mg Allergies Allergies Allergy/AdvReac Type Severity Reaction Status Date / Time No Known Allergies Allergy Verified 06/21/23 17:00 Assessment & Plan Assessment & Plan (1) PTSD (post-traumatic stress disorder): Status: Acute Code(s): F43.10 - Post-traumatic stress disorder, unspecified (2) Alcohol use disorder: Status: Acute Code(s): F10.90 - Alcohol use, unspecified, uncomplicated (3) MANJIT (obstructive sleep apnea): Status: Acute Code(s): G47.33 - Obstructive sleep apnea (adult) (pediatric) (4) MDD (major depressive disorder), recurrent severe, without psychosis: Status: Acute Code(s): F33.2 - Major depressive disorder, recurrent severe without psychotic features Plan 32 yo male, hx of PTSD, Depression, Alcohol Use, MANJIT looking for assistance to re-establish his health, improve his parenting and manage PTSD sx. Requests referrals for psychotherapy, EMDR and will re-establish himself with AA. Hospital course: 06/22: Overall we discussed scheduling trazodone 50 mg at bedtime and 50 mg as needed, while also increasing Zoloft to 150 mg. 06/23: Gave written information regarding naltrexone so patient can consider same 5/6 pt says depression better, now a 5/10 when before admission it was a 10/10; SI resolved. Discussed hx and no evidence of hx manic type episodes. Longest time of sobriety is 10months; during this time, still depressed and anxious but not as much; however, it always worsens in fall and winter at which time he starts to lose hope and eventually relapses on alcohol. Hx of trauma contributes and pt feels need to address mouch more in therapy -Does not want naltrexone; very involved in AA and has sponsor; not much cravings but just relief from depression that triggers relapse -Feels good about staying on Zoloft 150mg for now. -wants to address potential MANJIT (whole family has it) Formulation: Patient has Combination of PTSD anxiety that has worsened chronic depression; he has with limited history of treatment and has used alcohol as a coping mechanism. If patient does have MANJIT that is likely contributory to mood. Patient eager for treatment and engaged. PLAN: CV Q 15 minute checks Continue Zoloft 150 mg for now Will consider other medication for anxiety while trying to avoid polypharmacy Will order sleep study to address MANJIT Detox complete Patient educated on: diagnosis, medication risk/benefits, substance abuse and therapeutic strategies Informed Consent: understands Reason for continued inpatient stay Substantial Risk for: rapid decompensation Time Spent With Patient Time: Total time managing care of this patient today ____ minutes.
[2023-06-25] MEDS: Acetaminophen 325 MG TABLET 650 MG PO (15:43)
[2023-06-25 20:00] VITALS: BP 148/88; PULSE 69; TEMP 36.9; O2SAT 97
--- NOTE | 2023-06-25 23:28 | PC.RT ---
Pt placed on Sleep Study at [facility]
[2023-06-26 08:00] VITALS: BP 133/77; PULSE 72; RESP 16; TEMP 37.1; O2SAT 96
[2023-06-26] MEDS: Sertraline HCL 50 MG TABLET 150 MG PO (08:10)
[2023-06-26] MEDS: Multivitamin TABLET 1 TAB PO (08:11)
[2023-06-26] MEDS: Folic Acid 1 MG TABLET PO (08:11)
[2023-06-26] MEDS: Thiamine HCL 100 MG TABLET PO (08:11)
--- NOTE | 2023-06-26 09:31 | HO.PSYCHPN ---
Subjective Subjective Date of Service: 06/26/23 Reason For Visit: depression,si alcohol use disorder Interim History: met with patient; discussed with team pt reports he's feeling better and grateful he was able to get sleep study; he's anticipating it will be positive for MANJIT and that treatment will help with several problems including mood and being tired all the time at work. He feels good about current dose of Zoloft and would like to remain on it for now. He would however like to try clonidine for situational anxiety (reviewed risks/side-effects). -discussed SAD which pt has (worsens in winter time) and treatments -discussed sobriety and pt optimistic; meeting with sponsor today -discussed aftercare; pt missing daughter, feeling getting ready to go home soon Mental Status Exam Mental Status Exam Narrative: Pt is alert and oriented; behavior is cooperative, friendly, more calm; patient is not in distress; dressed in casual attire with with adequate hygiene; mood is described as better and affect congruent, more calm; eye contact appropriate; Speech is normal rate, volume and prosody and not pressured; no psychomotor agitation/retardation present; thought process is organized and goal directed; Thought content is on tx; otherwise pertinent to relevant topics and without any delusional content, paranoid ideations or grandiosity; denies any SI/HI. There is no evidence of perceptual disturbance. Patients insight and judgment fair. Diagnostics Vital Signs (24Hr): Vital Signs - 24 hr 06/25/23 20:00 06/26/23 08:00 Temperature 98.4 F 98.7 F Pulse Rate 69 72 Respiratory Rate 16 Blood Pressure 148/88 H 133/77 Pulse Oximetry 97 96 Oxygen Delivery Method Room Air Room Air BMI result Body Mass Index 37.0 Labs 06/21/23 18:22 06/21/23 18:22 Medications Medications Current Medications Acetaminophen (Acetaminophen 325 Mg Tablet) 650 mg PO Q6H PRN PRN Reason: Headache/Pain Mild Scale (1-3) Last Admin: 06/25/23 15:43 Dose: 650 mg Al Hydroxide/Mg Hydroxide (Magnesium Hydrox/Alum Hydrox 30 Ml Oral.Susp) 30 ml PO Q6H PRN PRN Reason: Heartburn/Nausea Folic Acid (Folic Acid 1 Mg Tablet) 1 mg PO DAILY [facility] Last Admin: 06/26/23 08:11 Dose: 1 mg Hydroxyzine HCl (Hydroxyzine Hcl 25 Mg Tablet) 25 mg PO Q6H PRN PRN Reason: Anxiety Last Admin: 06/23/23 06:41 Dose: 25 mg Magnesium Hydroxide (Milk Of Magnesia 30 Ml Oral.Susp) 30 ml PO DAILY PRN PRN Reason: Constipation Multivitamins/Vitamin C (Multivitamin Tablet) 1 tab PO DAILY [facility] Last Admin: 06/26/23 08:11 Dose: 1 tab Sertraline HCl (Sertraline Hcl 50 Mg Tablet) 150 mg PO DAILY [facility] Last Admin: 06/26/23 08:10 Dose: 150 mg Thiamine HCl (Thiamine Hcl 100 Mg Tablet) 100 mg PO DAILY [facility] Last Admin: 06/26/23 08:11 Dose: 100 mg Trazodone HCl (Trazodone Hcl 50 Mg Tablet) 50 mg PO BEDTIME [id number] PRN PRN Reason: Insomnia Last Admin: 06/23/23 20:42 Dose: 50 mg Allergies Allergies Allergy/AdvReac Type Severity Reaction Status Date / Time No Known Allergies Allergy Verified 06/21/23 17:00 Assessment & Plan Assessment & Plan (1) MDD (major depressive disorder), recurrent severe, without psychosis: Status: Acute Code(s): F33.2 - Major depressive disorder, recurrent severe without psychotic features (2) PTSD (post-traumatic stress disorder): Status: Acute Code(s): F43.10 - Post-traumatic stress disorder, unspecified (3) Alcohol use disorder: Status: Acute Code(s): F10.90 - Alcohol use, unspecified, uncomplicated (4) MANJIT (obstructive sleep apnea): Status: Suspected Code(s): G47.33 - Obstructive sleep apnea (adult) (pediatric) Plan 32 yo male, hx of PTSD, Depression, Alcohol Use, MANJIT looking for assistance to re-establish his health, improve his parenting and manage PTSD sx. Requests referrals for psychotherapy, EMDR and will re-establish himself with AA. Hospital course: 06/22: Overall we discussed scheduling trazodone 50 mg at bedtime and 50 mg as needed, while also increasing Zoloft to 150 mg. 06/23: Gave written information regarding naltrexone so patient can consider same 5/6 pt says depression better, now a 5/10 when before admission it was a 10/10; SI resolved. Discussed hx and no evidence of hx manic type episodes. Longest time of sobriety is 10months; during this time, still depressed and anxious but not as much; however, it always worsens in fall and winter at which time he starts to lose hope and eventually relapses on alcohol. Hx of trauma contributes and pt feels need to address mouch more in therapy -Does not want naltrexone; very involved in AA and has sponsor; not much cravings but just relief from depression that triggers relapse -Feels good about staying on Zoloft 150mg for now. -wants to address potential MANJIT (whole family has it) 5/ pt reports he's feeling better and grateful he was able to get sleep study; he's anticipating it will be positive for MANJIT and that treatment will help with several problems including mood and being tired all the time at work. He feels good about current dose of Zoloft and would like to remain on it for now. He would however like to try clonidine for situational anxiety (reviewed risks/side-effects). -discussed SAD which pt has (worsens in winter time) and treatments; will give literature -discussed sobriety and pt optimistic; meeting with sponsor today -discussed aftercare; pt missing daughter, feeling getting ready to go home soon Formulation: Patient has Combination of PTSD anxiety that has worsened chronic depression; SAD compenent as well and all worsened by long time alcohol abuse hx; has with limited history of treatment (prozac/wellbutrin). Some biologic vulnerability as well as both parents struggled with substance abuse and mother with other mental health issues. If patient does have MANJIT that is likely contributory to mood. Patient eager for treatment and engaged. PLAN: CV Q 15 minute checks Continue Zoloft 150 mg for now Will consider other medication for anxiety while trying to avoid polypharmacy Will order sleep study to address MANJIT Detox complete Patient educated on: diagnosis, medication risk/benefits, substance abuse, therapeutic strategies and medical condition Informed Consent: understands Reason for continued inpatient stay Substantial Risk for: stable for discharge Time Spent With Patient Time: Total time managing care of this patient today ____ minutes.
[2023-06-26 10:52] VITALS: BP 134/78
[2023-06-26] MEDS: cloNIDine HCL 0.1 MG TABLET PO (10:52)
[2023-06-26] MEDS: Acetaminophen 325 MG TABLET 650 MG PO (18:07)
[2023-06-26 20:00] VITALS: BP 145/67; PULSE 79; RESP 16; TEMP 36.3; O2SAT 96
[2023-06-26] MEDS: Ibuprofen 800 MG TABLET PO (21:39)
[2023-06-27 08:00] VITALS: BP 133/73; PULSE 98; RESP 18; TEMP 36.5; O2SAT 100
[2023-06-27] MEDS: Folic Acid 1 MG TABLET PO (08:31)
[2023-06-27] MEDS: Sertraline HCL 50 MG TABLET 150 MG PO (08:31)
[2023-06-27] MEDS: Thiamine HCL 100 MG TABLET PO (08:31)
[2023-06-27] MEDS: Multivitamin TABLET 1 TAB PO (08:31)
[2023-06-27] MEDS: Lidocaine 4 % Patch ADH..PATCH 1 PATCH TRANSDERMA (09:20)
[2023-06-27] MEDS: Ibuprofen 800 MG TABLET PO ×2 (09:22→19:36)
--- NOTE | 2023-06-27 12:08 | HO.PSYCHPN ---
Subjective Subjective Date of Service: 06/27/23 Reason For Visit: depression,si alcohol use disorder Interim History: Met with patient; discussed with team Patient doing well, good mood and feels depression has resolved; Also anxiety down despite Milieu acuity. Reviewed med and pt feels good about regimen; no side-effects; discussed sobriety and pt optimistic. Looking forward to discharge and getting back to work. Mental Status Exam Mental Status Exam Narrative: Pt is alert and oriented; behavior is cooperative, friendly, more calm; patient is not in distress; dressed in casual attire with with adequate hygiene; mood is described as good and affect congruent, Bright, calm; eye contact appropriate; Speech is normal rate, volume and prosody and not pressured; no psychomotor agitation/retardation present; thought process is organized and goal directed; Thought content is on tx; otherwise pertinent to relevant topics and without any delusional content, paranoid ideations or grandiosity; denies any SI/HI. There is no evidence of perceptual disturbance. Patients insight and judgment fair. Diagnostics Vital Signs (24Hr): Vital Signs - 24 hr 06/26/23 20:00 06/27/23 08:00 Temperature 97.3 F 97.7 F Pulse Rate 79 98 Respiratory Rate 16 18 Blood Pressure 145/67 H 133/73 Pulse Oximetry 96 100 Oxygen Delivery Method Room Air Room Air BMI result Body Mass Index 37.0 Labs 06/21/23 18:22 06/21/23 18:22 Medications Medications Current Medications Acetaminophen (Acetaminophen 325 Mg Tablet) 650 mg PO Q6H PRN PRN Reason: Headache/Pain Mild Scale (1-3) Last Admin: 06/26/23 18:07 Dose: 650 mg Al Hydroxide/Mg Hydroxide (Magnesium Hydrox/Alum Hydrox 30 Ml Oral.Susp) 30 ml PO Q6H PRN PRN Reason: Heartburn/Nausea Clonidine HCl (Clonidine Hcl 0.1 Mg Tablet) 0.1 mg PO Q4H PRN; Protocol PRN Reason: moderate anxiety Last Admin: 06/26/23 10:52 Dose: 0.1 mg Folic Acid (Folic Acid 1 Mg Tablet) 1 mg PO DAILY [facility] Last Admin: 06/27/23 08:31 Dose: 1 mg Hydroxyzine HCl (Hydroxyzine Hcl 25 Mg Tablet) 25 mg PO Q6H PRN PRN Reason: mild Anxiety Ibuprofen (Ibuprofen 800 Mg Tablet) 800 mg PO Q8H PRN PRN Reason: back pain Last Admin: 06/27/23 09:22 Dose: 800 mg Lidocaine (Lidocaine 4 % Patch Adh..Patch) 1 patch TRANSDERMA DAILY [facility]; Protocol Last Admin: 06/27/23 09:20 Dose: 1 patch Magnesium Hydroxide (Milk Of Magnesia 30 Ml Oral.Susp) 30 ml PO DAILY PRN PRN Reason: Constipation Multivitamins/Vitamin C (Multivitamin Tablet) 1 tab PO DAILY [facility] Last Admin: 06/27/23 08:31 Dose: 1 tab Sertraline HCl (Sertraline Hcl 50 Mg Tablet) 150 mg PO DAILY [facility] Last Admin: 06/27/23 08:31 Dose: 150 mg Thiamine HCl (Thiamine Hcl 100 Mg Tablet) 100 mg PO DAILY [facility] Last Admin: 06/27/23 08:31 Dose: 100 mg Trazodone HCl (Trazodone Hcl 50 Mg Tablet) 50 mg PO BEDTIME MRX1 PRN PRN Reason: Insomnia Last Admin: 06/23/23 20:42 Dose: 50 mg Allergies Allergies Allergy/AdvReac Type Severity Reaction Status Date / Time No Known Allergies Allergy Verified 06/21/23 17:00 Assessment & Plan Assessment & Plan (1) MDD (major depressive disorder), recurrent severe, without psychosis: Status: Acute Code(s): F33.2 - Major depressive disorder, recurrent severe without psychotic features (2) PTSD (post-traumatic stress disorder): Status: Acute Code(s): F43.10 - Post-traumatic stress disorder, unspecified (3) Alcohol use disorder: Status: Acute Code(s): F10.90 - Alcohol use, unspecified, uncomplicated (4) MANJIT (obstructive sleep apnea): Status: Suspected Code(s): G47.33 - Obstructive sleep apnea (adult) (pediatric) (5) Seasonal affective disorder: Status: Acute Code(s): F33.8 - Other recurrent depressive disorders Plan 32 yo male, hx of PTSD, Depression, Alcohol Use, MANJIT looking for assistance to re-establish his health, improve his parenting and manage PTSD sx. Requests referrals for psychotherapy, EMDR and will re-establish himself with AA. Hospital course: 06/22: Overall we discussed scheduling trazodone 50 mg at bedtime and 50 mg as needed, while also increasing Zoloft to 150 mg. 06/23: Gave written information regarding naltrexone so patient can consider same 06/24 pt says depression better, now a 06/28 when before admission it was a 11/28; SI resolved. Discussed hx and no evidence of hx manic type episodes. Longest time of sobriety is 10months; during this time, still depressed and anxious but not as much; however, it always worsens in fall and winter at which time he starts to lose hope and eventually relapses on alcohol. Hx of trauma contributes and pt feels need to address mouch more in therapy -Does not want naltrexone; very involved in AA and has sponsor; not much cravings but just relief from depression that triggers relapse -Feels good about staying on Zoloft 150mg for now. -wants to address potential MANJIT (whole family has it) 06/25 pt reports he's feeling better and grateful he was able to get sleep study; he's anticipating it will be positive for MANJIT and that treatment will help with several problems including mood and being tired all the time at work. He feels good about current dose of Zoloft and would like to remain on it for now. He would however like to try clonidine for situational anxiety (reviewed risks/side-effects). -discussed SAD which pt has (worsens in winter time) and treatments; will give literature -discussed sobriety and pt optimistic; meeting with sponsor today -discussed aftercare; pt missing daughter, feeling getting ready to go home soon 06/26 remains doing well, good mood, depression resolved, anxiety much less and clonidine helping; pt requests discharge feeling ready to go home, get back to work and continue tx in community. He is future oriented and has support in place. Pt is not in imminent risk for harm to self or others and appropriat to return to community for tx; request for dc honored. -waiting for results of sleep study and dx +/- MANJIT Formulation: Patient has Combination of PTSD anxiety that has worsened chronic depression; SAD compenent as well and all worsened by long time alcohol abuse hx; has with limited history of treatment (prozac/wellbutrin). Some biologic vulnerability as well as both parents struggled with substance abuse and mother with other mental health issues. If patient does have MANJIT that is likely contributory to mood. Patient eager for treatment and engaged. PLAN: CV Q 15 minute checks Continue Zoloft 150 mg for now sleep study to address MANJIT; results pending. Detox complete Patient educated on: diagnosis, medication risk/benefits, substance abuse, therapeutic strategies and medical condition Informed Consent: understands Reason for continued inpatient stay Substantial Risk for: stable for discharge Time Spent With Patient Time: Total time managing care of this patient today ____ minutes.
[2023-06-27] MEDS: Acetaminophen 325 MG TABLET 650 MG PO (15:13)
[2023-06-27] MEDS: cloNIDine HCL 0.1 MG TABLET PO (19:36)
[2023-06-27 20:00] VITALS: BP 153/74; PULSE 63; RESP 18; TEMP 36.2; O2SAT 97
[2023-06-28 03:19] VITALS: BP 153/74; PULSE 78; RESP 18; TEMP 36.6; O2SAT 97
[2023-06-28 08:20] VITALS: BP 133/98; PULSE 70; RESP 16; TEMP 36.4; O2SAT 99
[2023-06-28] MEDS: Folic Acid 1 MG TABLET PO (08:21)
[2023-06-28] MEDS: Thiamine HCL 100 MG TABLET PO (08:21)
[2023-06-28] MEDS: Multivitamin TABLET 1 TAB PO (08:21)
[2023-06-28] MEDS: Ibuprofen 800 MG TABLET PO (08:21)
[2023-06-28] MEDS: Sertraline HCL 50 MG TABLET 150 MG PO (08:21)
--- NOTE | 2023-06-29 10:51 | PM.PSYDC ---
DS: Providers Provider Date of Service: 06/28/23 Date of admission: 06/22/23 11:39 Date of discharge: 06/28/23 Primary care physician: Aidan Minor MD Admitting clinician: Jyoti Dominguez Consults: 06/22/23 12:51 Consult to Care Team Stat Comment: Reason for consultation: SI 06/22/23 18:52 Addiction Medicine Routine Consulting Provider: Addiction Covering Reason for consultation: Detox, well connected with AA, recovery support Attending physician on discharge: Heriberto Becerril DS: Diagnosis Discharge Diagnosis (1) MDD (major depressive disorder), recurrent severe, without psychosis: Status: Acute (2) PTSD (post-traumatic stress disorder): Status: Acute (3) Alcohol use disorder: Status: Acute (4) MANJIT (obstructive sleep apnea): Status: Suspected (5) Seasonal affective disorder: Status: Acute DS: Medications Discharge Medications Home Medications: Previous Rx's ?Medication ?Instructions ?Recorded clonidine HCl 0.1 mg tablet 0.1 mg PO Q4H PRN moderate anxiety 06/28/23 30 days #90 tabs folic acid 1 mg tablet 1 mg PO DAILY 30 days #30 tabs 06/28/23 multivitamin (Daily-Dandy tablet) 1 tab PO DAILY 30 days #30 tabs 06/28/23 sertraline 100 mg tablet 150 mg (1.5 x 100 mg) PO DAILY 30 06/28/23 days #45 tabs thiamine mononitrate (vit B1) 100 100 mg PO DAILY 30 days #30 tabs 06/28/23 mg tablet Mental Status Exam Mental Status Exam Narrative: Pt is alert and oriented; behavior is cooperative, friendly, more calm; patient is not in distress; dressed in casual attire with with adequate hygiene; mood is described as good and affect congruent, Bright, calm; eye contact appropriate; Speech is normal rate, volume and prosody and not pressured; no psychomotor agitation/retardation present; thought process is organized and goal directed; Thought content is on tx; otherwise pertinent to relevant topics and without any delusional content, paranoid ideations or grandiosity; denies any SI/HI. There is no evidence of perceptual disturbance. Patients insight and judgment fair. Data Data Completed and Pending Completed studies during hospitalization [Text1]: 06/22/23 06/23/23 10:36 07:25 Estimat Average Glucose 103 Hemoglobin A1c % 5.2 Magnesium 1.9 Triglycerides 222 H Cholesterol 205 H LDL Cholesterol, Calc 102 H HDL Cholesterol 59 Vitamin B12 414 Folate 13.9 TSH 1.49 Free T4 1.07 Urine Color Yellow Urine Appearance Clear Urine pH 6.0 Ur Specific [place] >= 1.030 H Urine Protein 30 (1+) H Urine Glucose (UA) Negative Urine Ketones Trace Urine Blood Negative Urine Nitrite Negative Ur Leukocyte Esterase Trace H Urine RBC 0-2 Urine WBC 0-5 Ur Squamous Epith Cells 0-2 Urine Bacteria None Seen Hyaline Casts 0-2 DS: Summary Hospital Course Hospital Course: HPI: 32 yo male, hx of PTSD, Depression, Alcohol Use, possibly MANJIT 32 yo male, father of a 6 yo daughter, Brittney Gresham presents with increase sx of depression, alcohol relapse (believes he has detoxed himself over the past 2 days-very strong AA connection). Reports depression his entire adult life. Sx increased he believes over the past weeks-possible precipitants loss of relationship and feeling he did not protect his daughter enough-he let her go out with his mother and he reports he believes while out his mother stole an item from a local [employer]- he reports he is focused on this. Has been in his home for the past 5 days, not responding to family. Generally this is a good time of year he reports, hx of SAD sx in winter, but this time of year he is usually feeling better. Discussed relationship changes. Relationship with daughter's mother has been on and off and it ended ~2 months ago. Both co-parent, girlfriend has two other teen-age daughters and relationship became complicated with balancing children's needs. Pt is well connected with AA and sponsor knows he is here. He hopes to begin to improve his health and have consistent positive outlook to improve parenting. I am often sad and not good at showing it. Formulation: Patient has Combination of PTSD anxiety that has worsened chronic depression; SAD compenent as well and all worsened by long time alcohol abuse hx; has with limited history of treatment (prozac/wellbutrin). Some biologic vulnerability as well as both parents struggled with substance abuse and mother with other mental health issues. If patient does have MANJIT that is likely contributory to mood. Patient eager for treatment and engaged. Hospital course: 06/22: Overall we discussed scheduling trazodone 50 mg at bedtime and 50 mg as needed, while also increasing Zoloft to 150 mg. 06/23: Gave written information regarding naltrexone so patient can consider same 06/24 pt says depression better, now a 06/28 when before admission it was a 11/28; SI resolved. Discussed hx and no evidence of hx manic type episodes. Longest time of sobriety is 10months; during this time, still depressed and anxious but not as much; however, it always worsens in fall and winter at which time he starts to lose hope and eventually relapses on alcohol. Hx of trauma contributes and pt feels need to address mouch more in therapy -Does not want naltrexone; very involved in AA and has sponsor; not much cravings but just relief from depression that triggers relapse -Feels good about staying on Zoloft 150mg for now. -wants to address potential MANJIT (whole family has it) 06/25 pt reports he's feeling better and grateful he was able to get sleep study; he's anticipating it will be positive for MANJIT and that treatment will help with several problems including mood and being tired all the time at work. He feels good about current dose of Zoloft and would like to remain on it for now. He would however like to try clonidine for situational anxiety (reviewed risks/side-effects). -discussed SAD which pt has (worsens in winter time) and treatments; will give literature -discussed sobriety and pt optimistic; meeting with sponsor today -discussed aftercare; pt missing daughter, feeling getting ready to go home soon 06/26 remains doing well, good mood, depression resolved, anxiety much less and clonidine helping; pt requests discharge feeling ready to go home, get back to work and continue tx in community. He is future oriented and has support in place. Pt is not in imminent risk for harm to self or others and appropriat to return to community for tx; request for dc honored. -waiting for results of sleep study -reviewed sleep study with patient which was positive for MANJIT; patient relieved to have a diagnosis Patient doing well, good mood, depression/anxiety resolved and patient feeling optimistic. Patient has been in good behavioral and impulse control throughout his admission. He is remained engaged in treatment and appropriate with peers and staff. Patient is on medications that are helpful. Patient has plan to remain sober and has already met with his AA sponsor and is going to a meeting same day as discharge. He is returning to a supportive environment. Patient is future oriented; he is not in imminent risk for harm to self as and appropriate to return to the community for treatment. His request for discharge honored. Time spent discussing smoking cessation with patient: 3 to 10 minutes Status at Discharge Functional status at discharge: independent ambulation Overall status at discharge: patient is back to baseline Time Spent with Patient Time attestation: Total time managing care of this patient today _45___ minutes. Time spent: Greater than 30 minutes Discharge Plan Discharge Anticipated Discharge Date/Time: 06/28/23 11:30 Patient Disposition: Home, Self-Care Discharge Diagnosis: MDD, recurrent, severe without psychosis, in full remission Referrals: [facility] Intake w Halina Mederos [Other] - 07/04/23 12:00 pm [facility] Psyche Raquel [facility] [Other] - 08/02/23 12:50 pm (Telehealth) [facility] Med Denis [facility] [Other] - 08/30/23 11:00 am (Telehealth) Aidan Minor MD [Primary Care Provider] - 1 Week (office will call pt with follow-up appointment.) Discharge Medications: New clonidine HCl 0.1 mg Tablet 0.1 mg PO Q4H PRN (Reason: moderate anxiety) 30 Days Qty: 90 1RF Protocol: Hold for SBP< HOLD for SBP < : 90 folic acid 1 mg Tablet 1 mg PO DAILY 30 Days Qty: 30 0RF multivitamin [Daily-Dandy] Tablet 1 tab PO DAILY 30 Days Qty: 30 0RF thiamine mononitrate (vit B1) 100 mg Tablet 100 mg PO DAILY 30 Days Qty: 30 0RF Changed sertraline 100 mg tablet 150 mg PO DAILY 30 Days Qty: 45 1RF Discontinued hydroxyzine HCl 25 mg tablet 25 mg PO TID PRN (Reason: anxiety) Qty: 7 0RF omeprazole 20 mg capsule,delayed release(DR/EC) 20 mg PO DAILY 30 Days Qty: 30 0RF ondansetron 4 mg tablet,disintegrating 4 mg PO Q6-8H PRN (Reason: nausea and vomiting) Qty: 14 0RF amoxicillin-pot clavulanate 875-125 mg tablet 1 tab PO Q12H Qty: 20 0RF amoxicillin 500 mg tablet 500 mg PO BID Qty: 20 0RF Discharge Orders: Discharge Order (Routine); Ordered 06/28/23 Ordered By: Heriberto Becerril Diet: Regular diet Activity on Discharge: As tolerated Stand Alone Forms: Patient Portal Discharge page, Community Support Print Language: Trinidadian Care Plan Goals: Maintain mood and safe behaviors Take medications as prescribed Continue to pursue sobriety Practice coping skills Continue with outpatient providers and reach out to them as needed Health Concerns: Mood stability and behaviors Sobriety MANJIT Plan of Treatment: Follow up with your PCP, psychiatric provider and other outpatient providers regarding above concerns Take medications as prescribed Assessment: Risk assessment at time of discharge:? Patient was interviewed prior to discharge and found to be fully oriented and without any SI or HI. Patient has improved insight and judgment and wants to continue treatment. Patient is not in imminent risk of harm to self or others and has a safety plan that includes presenting to the closest ER or calling 911 if feeling unsafe.? Patient has been observed closely by nursing and unit staff throughout admission; patient has not engaged in any behaviors that suggest dangerousness to self or others and has demonstrated appropriate behaviors and impulse control Discharge Date/Time: 06/28/23 11:13
== END 2023-06-28 11:13 | disposition home or self-care (01) | DRG 751 ==
LOC: HO.ED 06-22 02:44 → HO.PM5 06-22 11:52
PROVIDERS: Emergency Medicine; Nurse Practitioner Family; Admitting Provider Clinical Nurse Specialist Psychiatric/Mental Health, Adult; Emergency Provider Emergency Medicine; PCP Internal Medicine; Visit Provider Psychiatry & Neurology Psychiatry
DX: F33.2 Major depressive disorder, recurrent severe without psychotic features (principal); R45.851 Suicidal ideations; F43.10 Post-traumatic stress disorder, unspecified; G47.33 Obstructive sleep apnea (adult) (pediatric); F10.90 Alcohol use, unspecified, uncomplicated; Y90.8 Blood alcohol level of 240 mg/100 ml or more; Z79.899 Other long term (current) drug therapy
CPT/HCPCS: 36415; 80053; 80061; 80143; 80179; 80307; 81001; 82607; 82746; 83036; 83735; 84439; 84443; 85025; 93005; 99285; S9485

== ENCOUNTER 2023-06-22 11:39 | Outpatient (BNV) | payer OTHER, SELFPAY | END 2023-06-22 11:48 | PROVIDERS: Admitting Provider Clinical Nurse Specialist Psychiatric/Mental Health, Adult; Emergency Provider Emergency Medicine; PCP Internal Medicine; Visit Provider Internal Medicine | DX: I45.81 Long QT syndrome (principal) | CPT/HCPCS: 93010 ==

== ENCOUNTER → 2023-06-22 11:39 | Outpatient (BNV) | payer OTHER, SELFPAY | PROVIDERS: Admitting Provider Clinical Nurse Specialist Psychiatric/Mental Health, Adult; Emergency Provider Emergency Medicine; PCP Internal Medicine; Visit Provider Clinical Nurse Specialist Psychiatric/Mental Health, Adult | DX: F33.2 Major depressive disorder, recurrent severe without psychotic features (principal); F43.11 Post-traumatic stress disorder, acute; F10.90 Alcohol use, unspecified, uncomplicated; G47.33 Obstructive sleep apnea (adult) (pediatric) | CPT/HCPCS: 90792; 99231; 99232; 99239 ==

== ENCOUNTER 2023-09-03 11:32 | Outpatient (REF) | payer OTHER, SELFPAY ==
[2023-09-03 11:35] LABS: MANUAL DIFF FLAG NO
[2023-09-03 11:43] LABS: Basophils Absolute Auto 0.1 X10*3/uL (0.0-0.2); Basophils Percent Auto 1.1 % (0-2); Eosinophils Absolute Auto 0.3 X10*3/uL (0.0-0.4); Eosinophils Percent Auto 3.6 % (0-4); Hematocrit 42.8 % (42.0-52.0); Imm Gran Abs Auto 0.02 X10*3/uL (0.00-0.03); Imm Gran Pct Auto 0.3 % (0.0-0.4); Lymphocytes Absolute Auto 2.4 X10*3/uL (1.2-4.9); Lymphocytes Percent Auto 33.7 % (20-40); Mean Corpuscular HGB Conc 32.7 g/dl (31.0-36.0); Mean Corpuscular Hemoglobin 30.6 pg (27.0-33.0); Mean Corpuscular Volume 93.4 fL (80.0-98.0); Mean Platelet Volume 9.9 fL (9.4-12.4); Monocytes Absolute Auto 0.8 X10*3/uL (0.1-1.2); Monocytes Percent Auto 11.5 % (2-11); Neutrophils Absolute Auto 3.6 x10*3/uL (2.0-8.3); Neutrophils Percent Auto 49.8 % (45-73); Platelet Count 252 X10*3/uL (160-400); Red Blood Count 4.58 X10*6/uL (4.60-5.80); Red Cell Distribution Width 12.7 % (11.0-16.0); White Blood Count 7.2 X10*3/uL (4.8-10.8)
== END 2023-09-03 11:33 | disposition home or self-care (01) ==
LOC: HO.LNP 11:32
PROVIDERS: Visit Provider Internal Medicine
DX: D72.820 Lymphocytosis (symptomatic) (principal)
CPT/HCPCS: 85025

== ENCOUNTER 2023-09-17 16:38 | Outpatient (REF) | payer OTHER, SELFPAY ==
[2023-09-17 17:02] LABS: Appearance Urine Clear; Color Urine Yellow; Glucose Urine UA Negative (Negative); Leukocyte Esterase Urine Negative (Negative); Nitrite Urine Negative (Negative); PH 5.5 (5.0-9.0); Specific Gravity - Urine <= 1.005 (1.005-1.025); Urine Blood Negative (Negative); Urine Ketones Negative (Negative); Urine Protein Negative (Neg-Trace)
[2023-09-17 17:04] LABS: Bacteria Urine None Seen (None Seen); RBC Urine 0-2 /HPF (0-2); Squamous Epithelial Cell Urine 0-2 /HPF (0-2); WBC Urine 0-5 /HPF (0-5)
== END 2023-09-17 16:39 | disposition home or self-care (01) ==
LOC: HO.LNP 16:38
PROVIDERS: Visit Provider Internal Medicine
DX: R80.8 Other proteinuria (principal)
CPT/HCPCS: 81001

== ENCOUNTER 2024-03-14 07:30 | Outpatient (REF) | payer OTHER, SELFPAY ==
[2024-03-14 11:04] LABS: MANUAL DIFF FLAG NO
[2024-03-14 11:20] LABS: Appearance Urine Clear; Color Urine Yellow; Glucose Urine UA Negative (Negative); Leukocyte Esterase Urine Negative (Negative); Nitrite Urine Negative (Negative); PH 5.5 (5.0-9.0); Specific Gravity - Urine 1.025 (1.005-1.025); Urine Blood Negative (Negative); Urine Ketones Negative (Negative); Urine Protein Negative (Neg-Trace)
[2024-03-14 11:22] LABS: Basophils Absolute Auto 0.1 X10*3/uL (0.0-0.2); Basophils Percent Auto 1.5 % (0-2); Eosinophils Absolute Auto 0.2 X10*3/uL (0.0-0.4); Eosinophils Percent Auto 3.3 % (0-4); Hematocrit 41.9 % (42.0-52.0); Hemoglobin 13.8 g/dl (14.0-18.0); Imm Gran Abs Auto 0.03 X10*3/uL (0.00-0.03); Imm Gran Pct Auto 0.5 % (0.0-0.4); Lymphocytes Absolute Auto 2.5 X10*3/uL (1.2-4.9); Lymphocytes Percent Auto 41.3 % (20-40); Mean Corpuscular HGB Conc 32.9 g/dl (31.0-36.0); Mean Corpuscular Hemoglobin 29.4 pg (27.0-33.0); Mean Corpuscular Volume 89.3 fL (80.0-98.0); Mean Platelet Volume 9.6 fL (9.4-12.4); Monocytes Absolute Auto 0.7 X10*3/uL (0.1-1.2); Monocytes Percent Auto 11.2 % (2-11); Neutrophils Absolute Auto 2.6 x10*3/uL (2.0-8.3); Neutrophils Percent Auto 42.2 % (45-73); Platelet Count 243 X10*3/uL (160-400); Red Blood Count 4.69 X10*6/uL (4.60-5.80); Red Cell Distribution Width 12.5 % (11.0-16.0); White Blood Count 6.1 X10*3/uL (4.8-10.8)
[2024-03-14 12:30] LABS: Alanine Aminotransferase 30 U/L (0-40); Albumin Level 4.2 g/dL (3.5-5.0); Anion Gap 12 (12-20); Aspartate Amino Transferase 68 U/L (5-37); Bilirubin Total 0.2 mg/dL (0.0-1.0); Blood Urea Nitrogen 25 mg/dL (9-16); Calcium 9.2 mg/dL (8.4-10.2); Carbon Dioxide 25 mmol/L (22-29); Chloride 111 mmol/L (96-108); Cholesterol 194 mg/dL (<200); Estimated Glomerular Filt Rate > 60; Glucose Fasting 86 mg/dL (60-99); HDL Cholesterol 42 mg/dL (>40); LDL Cholesterol Calculated 118 mg/dL (<100); Potassium 4.2 mmol/L (3.3-5.1); Sodium 144 mmol/L (135-145); Total Protein 7.4 g/dL (6.5-8.0); Triglycerides 173 mg/dL (<150)
--- OUTSIDE RECORDS SUMMARY | 2024-03-14 13:12 | XMS_ITS ---
Author Organization Aidan Minor MD Address [address] [place], [place] [id number] Care Team Providers Care Hearing Aid Mechanic Name Role Phone Aidan Minor Primary Care Provider Results Component Value Reference Range Notes Complete Blood Count Auto Di ff (Not yet reviewed by provider) Interpretation: Performing Lab:[facility], [address] [place] [id number] Notes/Report: White Blood Count 6.1 4.8-10.8 X10*3/uL Red Blood Count 4.69 4.60-5.80 X10*6/uL Hemoglobin 13.8 14.0-18.0 g/dl Hematocrit 41.9 42.0-52.0 % Mean Corpuscular Volume 89.3 80.0-98.0 fL Mean Corpuscular Hemoglobin 29.4 27.0-33.0 pg Mean Corpuscular HGB Conc 32.9 31.0-36.0 g/dl Red Cell Distribution Width 12.5 11.0-16.0 % Platelet Count 243 160-400 X10*3/uL Mean Platelet Volume 9.6 9.4-12.4 fL Neutrophils Percent Auto 42.2 45-73 % Imm Gran Pct Auto 0.5 0.0-0.4 % Lymphocytes Percent Auto 41.3 20-40 % Monocytes Percent Auto 11.2 2-11 % Eosinophils Percent Auto 3.3 0-4 % Basophils Percent Auto 1.5 0-2 % NRBC Pct Auto 0.0 0.0-0.2 /100WBC Neutrophils Absolute Auto 2.6 2.0-8.3 x10*3/u L Imm Gran Abs Auto 0.03 0.00-0.03 X10*3/uL Lymphocytes Absolute Auto 2.5 1.2-4.9 X10*3/u L Monocytes Absolute Auto 0.7 0.1-1.2 X10*3/uL Eosinophils Absolute Auto 0.2 0.0-0.4 X10*3/u L Basophils Absolute Auto 0.1 0.0-0.2 X10*3/uL NRBC Abs Auto 0.000 0.0-0.012 X10*3/uL REASON FOR VISIT FASTING LABS Encounters Encounter Location Date Provider Diagnosis Aidan Minor MD [address] [place] [address] [place] [phone] 03/14/2024 Aidan Minor Blood tests for routine general physical examination Z00.00 and Lymphocytosis D72.820 Assessments Encounter Date Diagnosis (ICD Code) Assessment Notes Treatment Notes Treatment Clinical Notes Section Notes 03/14/2024 Blood tests for routine general physical examination (ICD-10 - Z00.00) 03/14/2024 Lymphocytosis (ICD-10 - D72.820) Plan Of Treatment Pending Test Test Name Order Date Complete Blood Count Auto Diff 5 Comprehensive [place]. Panel Fast 5 Lipid Panel 03/14/2024 UA ClnCatch+Micro w/rflx Cult 03/14/2024 Next Appt Details Provider Name:Aidan Gauthier ier, 03/21/2024 02:30:00 PM, [address] [place] [address], [address], [place], [place], [phone], Progress Notes * EZRA MONTOYASDOB:[birth year] (33 yo M)Acc No.[id number]:03/14/2024 Progress Note Patient:?JANHENOK Graf Provider:?Aidan Minor MD :1990???Age:33 Y???Sex:Male Jordi e:03/14/2024 Address:[address] [id number] Subjective: * Chief Complaints: * ???1. FASTING LABS. * Medical History:? Objective: * Vitals:? Assessment: * Assessment: 1.?Blood tests for routine g eneral physical examination - Z00.00 (Primary)???2.?Lymphocytosis - D72.820??? Plan: * Treatment: 2.?Lymphocytosis?LAB: Complete Blood Count Auto Diff (Collection Date & Time - 03/14/2024 07:30 AM) ?LAB: [facility] [place]. Panel Fast ?LAB: Lipid Panel ?LAB: [facility] ClnCatch+Micro w/rflx Cult * Procedure Codes:?76207 VENIP UNCT, ROUTINE* * * The named appointment provid er may or may not be the originator of this progress note, and it is not deemed complete until electronically signed by the appointment provider. Sign off status: Pending * Provider:?Aidan Minor MD Date:?0 03/14/2024 Generated for Diogo hoffmann/Brittanie/Amaliaitting on:?03/14/2024 01:12 PM EST
--- OUTSIDE RECORDS SUMMARY | 2024-03-14 13:12 | XMS_ITS | Data Portability ---
Author Organization [facility], [address] Address [address] [place] [id number] Assessment No assessment recorded. Plan of Treatment Reminders Order Date Submit Date Provider Last Modified By Organization Details Last Modified Time Details Appointments None recorded. Lab rapid strep group A, throat [id number], [address], 09:02:32 Referral None recorded. Procedures None recorded. Surgeries None recorded. Imaging None recorded. Medication Orders amoxicillin 500 mg capsule 2021 [facility] #[id number], [address] [place], [address], 09:02:35 Lidocaine Viscous 2 % mucosal solution 2021 [facility][id number], [address] [place], [address], 09:02:34 acetaminoph en 500 mg tablet 2021 [facility][id number], [address] [place], [address], 09:02:34 Patient TargetsNo targets recorded. Patient Instructions Encounter Date Encounter Id Patient Instructions Last Modified By Organization Details Last Modified Time 01/23/2022 [id number] sore throat: car e instructions [email or web address] Not available 01/23/2022 09:02:32 Based on your Presentation, Exam, and Lab Testing you are being diagnosed with Strep Throat. Your Rapid Strep Test was positive. I am going to prescribe you and antibiotic to cover this infection. Please be sure to complete the full course of this antibiotic to prevent antibiotic resistance. It is also important to complete this antibiotic because this infection is what causes Scarlet Fever/Rheumatic Heart Disease. Antibiotics will typically take 4-5 days to start to work with symptom improvement. The following are my other recommendations to help with symptoms and is important for this diagnosis: 1. Do not share any food or drinks - strep is passed through direct saliva exchange (NOT IN THE AIR) 2. Change your toothbrush in 3-4 days so that you don't re-infect yourself after you complete the antibiotic. 3. Take Ibuprofen or Tylenol if you do not have any allergies to these medications. If you take a blood thinner you should not take NSAIDS like Ibuprofen. These medication will help with the inflammation in your respiratory tract which should help the cough. 4. Do not take any Cold Medications that have a Decongestant in it - this will dry out your throat and make the sore throat worse. 5. Drinking Hot Tea with honey can help coat and soothe your throat. 6. You would be considered contagious for the next 24-48 hours, or until fever resolves. I would be seen again if you develop any of the following symptoms. 1. Fever > 101.0 2. Stiff neck - where you can't turn your neck 3. Trouble swallowing your saliva - drooling 4. Swelling of a lymph node in your throat that is painful to touch 5. Difficulty breathing 6. Severe Headache Thank you for using [facility] today, please feel free to contact our office if you have any questions or concerns. [email or web address] Not available 01/23/2022 08:53:47 Reason for Referral None Reported. Results Created Date Observation Date Name Description Value Unit Range Abnormal Flag Note LastModifiedBy Organization Detail LastModifiedTime 01/24/2001/23/2022 rapid strep group aydee Cortez Unknown Analyte positi ve Not Available [address] [address] [place] [address], [place], [address], 01/23/2022 08:23:03 01/24/2001/23/2022 rapid strep group A, throa t Unknown Analyte Normal = Negati ve Not Available [facility], [place], [address], 01/23/2022 08:23:03 Result Notes None recorded. Problems Name Problem SNOMED Code Status Onset Date Resolution Date Notes Provider Name and Address Organization Details Recorded Time Anxiety 88029797 Active ROBINSON caba, [place] - [facility] 08:26:22 Acute depression 770228920 Active ROBINSON Choudhary null, [place] - [facility] 08:26:32 Problem Notes None recorded. Medical Equipment None Reported. Allergies No known drug allergies Medications Name Sig Start Date Stop Date Status Note LastModified by Organization Details LastModified Time amoxicillin 500 mg capsule TAKE 1 CAPSULE BY MOUTH EVERY 8 HOURS FOR 10 DAYS active Not Available Not Available No t Available clonidine HCl 0.1 mg tablet TAKE 1 TABLET BY MOUTH TWICE A DAY NEEDED FOR ANXIETY 01/23 completed Not Available Not Available Not Available trazodone 50 mg tablet TAKE ONE TO TWO TABLETS DAILY NEEDED FOR INSOMNIA AT BEDTIME 01/23 completed Not Available Not Available Not Available Lidocaine Viscous 2 % mucosal solution TAKE 7.5 ML EVERY 3-4 HOURS BY ORAL ROUTE FOR 3 DAYS. active Not Available Not Available No t Available prednisone 20 mg tablet TAKE 3 TABS DAILY X4DAYS THEN 2 TABS X3DAYS, THEN 1 TAB X 3DAYS, THEN 1/2 TAB X 2 DAYS 01/23 completed Not Available Not Available Not Available sertraline 100 mg tablet TAKE 1 TABLET BY MOUTH EVERY DAY IN THE EVENING active Not Available Not Available No t Available melatonin 3 mg tablet active Not Available Not Available No t Available acetaminoph en 500 mg tablet TAKE 2 TABLETS BY MOUTH EVERY 8 HOURS active Not Available Not Available No t Available buspirone 10 mg tablet TAKE 1 TABLET BY MOUTH TWICE A DAY DIRECTED 01/23 completed Not Available Not Available Not Available nicotine 21 mg/24 hr daily transdermal patch 01/23 completed Not Available Not Available Not Available sertraline 50 mg tablet TAKE ONE TABLET DAILY WITH 100 MG DOSE SERTRALIN E FOR TOTAL DAILY DOSE OF 150 MG. 01/23 completed Not Available Not Available Not Available loratadine 10 mg tablet TAKE 1 TABLET BY MOUTH ONE TIME PER DAY FOR 14 DAYS 01/23 completed Not Available Not Available Not Available hydroxyzine pamoate 25 mg capsule TAKE 1 CAPSULE BY MOUTH FOUR TIMES A DAY NEEDED FOR ANXIETY active Not Available Not Available No t Available quetiapine 50 mg tablet TAKE ONE TO TWO TABLETS DAILY NEEDED FOR SLEEP OR INSOMNIA 01/23 completed Not Available Not Available Not Available melatonin 10 mg capsule TAKE 1 CAPSULE BY MOUTH EVERYDAY AT BEDTIME active Not Available Not Available No t Available nicotine (polacrilex ) 2 mg buccal mini lozenge 01/23 completed Not Available Not Available Not Available Vitals Date Recorded Body height Provider Name an d Address Organization Details Last Updated DateTime 01/23/2022 180.34 cm ROBINSON CASAS [place] - [facility] 01/23/2022 08:24:11 Date Recorded Body mass index (BMI) Body weight Provider Name and Address Organization Details Last Updated DateTime 01/23/2022 32.1 kg/m2 559072.25 g ROBINSON CASAS [facility] - [facility] 01/23/2022 08:24:14 Date Recorded Body temperature Provider Name a nd Address Organization Details Last Updated DateTime 01/23/2022 97.4 [degF] ROBINSON HINTONVERTSANJUANITA PA - [facility] 01/23/2022 08:27:54 Date Recorded Respiratory rate Provider Name a nd Address Organization Details Last Updated DateTime 01/23/2022 20 /min ROBINSON HINTONVERTIER PA - [facility] 01/23/2022 08:27:56 Date Recorded Heart rate Provider Name an d Address Organization Details Last Updated DateTime 01/23/2022 86 /min ROBINSON HINTONVERTIER PA - [facility] 01/23/2022 08:27:58 Date Recorded Oxygen saturation Oxygen saturation in Arterial blood by Pulse oximetry Provider Name and Address Organization Details Last Updated DateTime 01/23/2022 96 % 96 % ROBINSON HINTONVERTSANJUANITA PA - [facility] 01/23/2022 08:28:01 Date Recorded Systolic blood pressure Diastolic blood pressure Provider Name and Address Organization Details Last Updated DateTime 01/23/2022 115 mm[Hg] 78 mm[Hg] ROBINSON CASAS [facility] - [facility] 01/23/2022 08:28:05 Social History Question Answer Notes LastModified by Organizat ion Details LastModified Time Tobacco Smoking Status Never Smoker [facility] 01/23/2022 08:26:52 What Is Your Level Of Alcohol Consumption? None Information not available 01/23/2022 What Is Your Water Source? City Information not available 01/23/2022 What Is Your Heat Source? Gas Information not available 01/23/2022 Have You Had Direct Contact, Or Contact During Intimacy, With Monkeypox Rash, Scabs, Or Body Fluids From A Person With Monkeypox? No Information not available 01/23/2022 Do You Use Any Illicit Or Recreational Drugs? No Information not available 01/23/2022 Have You Recently Traveled Abroad? No Information not available 01/23/2022 Do You Or Have You Ever Used Any Other Forms Of Tobacco Or Nicotine? No Information not available 01/23/2022 Sex: Unknown Functional Status None recorded. Mental Status None recorded. Family History Relationship Description Onset Age of this Age Resolved Age Notes LastModified by Organization Details LastModified Time Father No current problems or disability Not available 08:26:39 Mother No current problems or disability Not available 08:26:39 Medical History No medical history recorded. Past Encounters Encounter ID Performer Location Encounter Start Date Encounter Closed Date Diagnosis/Indication Diagnosis SNOMED-CT Code Diagnosis ICD10 Code Diagnosis Note [id number] [facility] [address] [place] [address] 10/06/2021 11:12:35 10/06/2021 13:17:41 [id number] [facility] [address] [place] [address] 01/23/2022 08:10:00 01/23/2022 09:01:31 Streptococcal sore throat 41515579 J02.0 Health Concerns Section Related Observation LastModified by Organization Detai ls LastModified Time None Recorded Concern Status LastModified by Organization Details LastModified Time None Recorded Advance Directives Directive None Recorded Payers Encounter Date Sequence Insurance Name Policy Number Policy Alfaro Covered Member ID Alfaro Member ID Guarantor Name 10/06/2021 1 [place] [facility] Marco Villeda [id number] Marco Villeda 01/23/2022 1 [place] [facility] Marco Villeda [id number] Marco Villeda Notes Date Note Type Note Provider Name and Address Organization Details Recorded Time 01/23/2022 text/html Sore throatRepor jasmeet bypatient.Location: hroat Severity:severe Quality:sharp; hurts to swallow Onset/Timin days Associated Symptoms:no cough; no sputum production; no shortness of breath; no vomiting; no nausea; No hoarseness Context:no sick contacts Modifying Factors:OTC medication some reliefNotes:The patient reports started on Sunday with a mild sore throat. Woke up Sunday with fever, bodyaches, fatigue - and a fever of 102.0. Went to the ER they did a COVID/RSV/Flu swab and he was told his RSV was positive. The patient states really wasn't having respiratory symptoms and feels they didn't listen to his main complaint which was the sore throat. Taking Ibuprofen. Here to have a reevaluation but his throat is so painful now and it looks terrible. SAGRARIO FLOWER [address] [place], [address], [place] - [facility] 01/23/2022 09:07:07
--- OUTSIDE RECORDS SUMMARY | 2024-03-14 13:12 | XMS_ITS ---
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 Name Role Phone Aidan Minor Primary Care Provider REASON FOR VISIT Medical records Encounters Encounter Location Date Provider Diagnosis Aidan Minor MD [address] [place] [address] [place] [id number] 09/27/2023 Aidan Minor Plan Of Treatment Next Appt Details Provider Name:iAdan Gauthier ier, 03/21/2024 02:30:00 PM, [address] [place] [address], Suite [facility], [place], [place], [phone], Progress Notes * EZRA MONTOYASDOB:[birth year] (32 yo M)Acc No.[id number]:09/27/2023 Patient:?HENOK MONTOYA :1990???Age:32 Y???Sex:Male Address:[address] [facility], [place], [address] * true * Date:? Generated for Printi ng/Facheyenneg/eTransmitting on:?03/14/2024 01:11 PM EST
--- OUTSIDE RECORDS SUMMARY | 2024-03-14 13:12 | XMS_ITS ---
Author Organization Aidan Minor MD Address [address] [place], [place] [phone] Care Team Providers Care Television Technician Name Role Phone Aidan Minor Primary Care Provider Allergies No Known Allergies Results Component Value Reference Range Notes Urinalysis and Microscopic Reviewed date:09/18/2023 07:55:46 AM Interpretation: Performing Lab:[facility], [address] [place] [phone] Notes/Report: Color Urine Yellow Appearance Urine Clear PH 5.5 5.0-9.0 Glucose Urine UA Negative Negative mg/dL Urine Blood Negative Negative Specific [place] - Urine <= 1.005 1.005-1.025 Urine Protein Negative Neg-Trace mg/dL Urine Ketones Negative Negative mg/dL Nitrite Urine Negative Negative Leukocyte Esterase Urine Negative Negative RBC Urine 0-2 0-2 /HPF WBC Urine 0-5 0-5 /HPF Squamous Epithelial Cell Urine 0-2 0-2 /HPF Bacteria Urine None Seen None Seen Hyaline Casts Urine 3-5 0-2 /LPF REASON FOR VISIT 6 MO F/U Medications Medication SIG (Take, Route, Fr equency, Duration) Notes Start Date End Date Status Sertraline HCl 100 MG TAKE 1.5TABLETS BY MOUTH EVERY DAY FOR 90 DAYS Orally Once a day Active Vital Signs Blood pressure systolic 110 mm Hg 09/17/19 24 Blood pressure diastolic 74 mm Hg 024 Height 70 in 09/17/2023 Weight 249 lbs 09/17/2023 BMI 35.72 kg/m2 09/17/2023 Encounters Encounter Location Date Provider Diagnosis Aidan Minor MD [address] [place], [place] [phone] 09/17/2023 Aidan Iván Other proteinuria R80.8 ; Lymphocytosis D72.820 and Alcohol abuse F10.10 Assessments Encounter Date Diagnosis (ICD Code) Assessment Notes Treatment Notes Treatment Clinical Notes Section Notes 09/17/2023 Other proteinuria (ICD-10 - R80.8) at the time he had the protein had been binging but will recheck today 09/17/2023 Lymphocytosis (ICD-10 - D72.820) 09/17/2023 Alcohol abuse (ICD-10 - F10.10) is doing well at present after 30 days of in patient treatment. 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 6 MO F/U. * HPI: ???Symptom(s):? patient is a 32 yo male here for 6 month follow up visit, was in rehab 30 days and just got back 08/27. had been drinking a lot for 4 weeks. * ROS:?General/Constitutional:?Denies?Chills.?Denies?Fatigue.?Denies?Fever.?Denies?Headache.?ENT:?Patient denies?decreased sense of smell , any loss of taste , sore throat.?Denies?Sore throat.?Respiratory:?Denies?Cough.?Denies?Shortness of breath at rest.?Denies?Shortness of breath with exertion.?Gastrointestinal:?Denies?Diarrhea.?Denies?Nausea.?Musculoskeletal:?Patient denies?muscle aches.?Peripheral Vascular:?Patient denies?red and blue toes.? * Medical History:?Medical His tory Verified. * Medications:?Taking Sertrali ne HCl 100 MG Tablet TAKE 1.5TABLETS BY MOUTH EVERY DAY FOR 90 DAYS Orally Once a day , Medication List reviewed and reconciled with the patient * Allergies:?N.K.D.A. Objective: * Vitals:?Ht: 70, Wt:249, BMI: 35.72, BP:110/74. * ???Past Orders: ???Lab:Complete Blood Count Auto Diff (Order Date - 09/03/2023) (Collection Date & Time - 09/03/2023 07:00 AM) ? Value Reference Range ?White Blood Count 7.2 4. 8-10.8 - X10*3/uL ?Red Blood Count 4.58 L 4.60 -5.80 - X10*6/uL ?Hemoglobin 14.0 14.0-18.0 - g/dl ?Hematocrit 42.8 42.0-52.0 - % ?Mean Corpuscular Volume 93.4 80.0-98.0 - fL ?Mean Corpuscular Hemoglobin 30.6 27.0-33.0 - pg ?Mean Corpuscular HGB Conc 32.7 31.0-36.0 - g/dl ?Red Cell Distribution Width 12.7 11.0-16.0 - % ?Platelet Count 252 160-4 00 - X10*3/uL ?Mean Platelet Volume 9.9 9.4-12.4 - fL ?Neutrophils Percent Auto 49.8 45-73 - % ?Imm Gran Pct Auto 0.3 0. 0-0.4 - % ?Lymphocytes Percent Auto 33.7 20-40 - % ?Monocytes Percent Auto 11.5 H 2-11 - % ?Eosinophils Percent Auto 3.6 0-4 - % ?Basophils Percent Auto 1.1 0-2 - % ?NRBC Pct Auto 0.0 0.0-0. 2 - /100WBC ?Neutrophils Absolute Auto 3.6 2.0-8.3 - x10*3/uL ?Imm Gran Abs Auto 0.02 0. 00-0.03 - X10*3/uL ?Lymphocytes Absolute Auto 2.4 1.2-4.9 - X10*3/uL ?Monocytes Absolute Auto 0.8 0.1-1.2 - X10*3/uL ?Eosinophils Absolute Auto 0.3 0.0-0.4 - X10*3/uL ?Basophils Absolute Auto 0.1 0.0-0.2 - X10*3/uL ?NRBC Abs Auto 0.000 0.0-0. 012 - X10*3/uL * Examination: ???General Examination: ?GENERAL APPEARANCE:? alert, well hydrated, in no distress .?HEAD:? normocephalic.?SKIN:? good turgor.?HEART:? regular rate and rhythm, no murmurs, rubs, gallops.?LUNGS:? no wheezes, rales, rhonchi, good air movement, clear to auscultation bilaterally.?ABDOMEN:? soft, nontender, nondistended, no organomegaly .? Assessment: * Assessment: 1.?Other proteinuria - R80.8 (Primary)???2.?Lymphocytosis - D72.820???3.?Alcohol abuse - F10.10??? Plan: * Treatment: Notes: at the time he had the protein had been binging but will recheck today?? 2.?Alcohol abuse? Notes: is doing well at present after 30 days of in patient treatment. 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 * * The named appointment provid er may or may not be the originator of this progress note, and it is not deemed complete until electronically signed by the appointment provider. Sign off status: Pending * Provider:?Aidan Minor MD Date:?0 09/17/2023 Generated for Diogo hoffmann/Brittanie/eTransmitting on:?03/14/2024 01:12 PM EST History and Physical Notes * HPI (History of Present Illness) Category Sub-Category Detail Notes Category Not es Symptom(s) patient is a 32 yo male here for 6 month follow up visit, was in rehab 30 days and just got back 08/27. had been drinking a lot for 4 weeks. Examination Category Sub-Category Detail Notes Category Not es General Examination GENERAL APPEARANCE: alert, w ell hydrated, in no distress HEAD: normocephalic HEART: regular rate and rhy thm, no murmurs, rubs, gallops LUNGS: no wheezes, rales, r honchi, good air movement, clear to auscultation bilaterally ABDOMEN: soft, nontender, non distended, no organomegaly SKIN: good turgor
--- OUTSIDE RECORDS SUMMARY | 2024-03-14 13:12 | XMS_ITS | Patient Health Record ---
Author Organization Aidan Minor MD Address [address] [place], [place] [id number] Care Team Providers Care Budget Technician Name Role Phone Aidan Minor Primary Care Provider Allergies No Known Allergies Results Component Value Reference Range Notes Complete Blood Count Auto Di ff Reviewed date:06/22/2023 07:11:40 AM Interpretation: Performing Lab:[facility], [address] [place] [phone] Notes/Report: White Blood Count 7.9 4.8-10.8 X10*3/uL Red Blood Count 4.98 4.60-5.80 X10*6/uL Hemoglobin 15.2 14.0-18.0 g/dl Hematocrit 42.3 42.0-52.0 % Mean Corpuscular Volume 84.9 80.0-98.0 fL Mean Corpuscular Hemoglobin 30.5 27.0-33.0 pg Mean Corpuscular HGB Conc 35.9 31.0-36.0 g/dl Red Cell Distribution Width 12.9 11.0-16.0 % Platelet Count 286 160-400 X10*3/uL Mean Platelet Volume 8.5 9.4-12.4 fL Neutrophils Percent Auto 36.3 45-73 % Imm Gran Pct Auto 0.3 0.0-0.4 % Lymphocytes Percent Auto 50.4 20-40 % Monocytes Percent Auto 10.4 2-11 % Eosinophils Percent Auto 1.7 0-4 % Basophils Percent Auto 0.9 0-2 % NRBC Pct Auto 0.0 0.0-0.2 /100WBC Neutrophils Absolute Auto 2.9 2.0-8.3 x10*3/u L Imm Gran Abs Auto 0.02 0.00-0.03 X10*3/uL Lymphocytes Absolute Auto 4.0 1.2-4.9 X10*3/u L Monocytes Absolute Auto 0.8 0.1-1.2 X10*3/uL Eosinophils Absolute Auto 0.1 0.0-0.4 X10*3/u L Basophils Absolute Auto 0.1 0.0-0.2 X10*3/uL NRBC Abs Auto 0.000 0.0-0.012 X10*3/uL Comprehensive Met. Panel Reviewed date:06/21/2023 07:20:33 PM Interpretation: Performing Lab:[facility], [address] [place] [phone] Notes/Report: Sodium 140 135-145 mmol/L Potassium 3.3 3.3-5.1 mmol/L Chloride 105 96-108 mmol/L Carbon Dioxide 20 22-29 mmol/L Anion Gap 18 12-20 Blood Urea Nitrogen 21 9-16 mg/dL Creatinine 1.10 0.5-1.4 mg/dL Creatinine Clr Calc Pharmacy 127.2 eGFR (calculated from the MDRD study equation) and eCrCl (calculated from the Cockcroft-Gault equation) are based on different parameters and may not yield comparable results. If eCrCl result is absurd, please check patient's height/weight. Estimated Glomerular Filt Rate > 60 NOTE: For -Serbian individuals, multiply the result by 1.210. Chronic Kidney Disease: Estimated GFR < 60 mL/min/1.73m2 Severe Kidney Disease: Estimated GFR < 15 mL/min/1.73m2 Glucose Random 118 60-115 mg/dL Calcium 9.4 8.4-10.2 mg/dL Bilirubin Total 0.2 0.0-1.0 mg/dL Aspartate Amino Transferase 27 5-37 U/L Alanine Aminotransferase 31 0-40 U/L Total Protein 7.4 6.5-8.0 g/dL Albumin Level 4.2 3.5-5.0 g/dL Alkaline Phosphatase 55 39-117 U/L Drug Screen Urine Reviewed date:06/22/2023 12:42:18 PM Interpretation: Performing Lab:[facility], [address] [place] [address] Notes/Report: Opiate Screen Urine Not Detected Not Detect Opiate cut-off is 300 ng/mL. Positive results are unconfirmed and should not be used for non-medical purposes. Barbiturates, Urine Not Detected Not Detect Barbiturate cut-off is 200 ng/mL. Positive results are unconfirmed and should not be used for non-medical purposes. Phencyclidine Screen Urine Not Detected Not Detect Phencyclidine cut-off is 25 ng/mL. Positive results are unconfirmed and should not be used for non-medical purposes. Amphetamine Screen Urine Not Detected Not Detect Amphetamine cut-off is 1000 ng/mL. Positive results are unconfirmed and should not be used for non-medical purposes. Benzodiazepines Screen Urine Not Detected Not Detect Benzodiazepine cut-off is 200 ng/mL. Positive results are unconfirmed and should not be used for non-medical purposes. Cocaine Screen Urine Not Detected Not Detect Cocaine cut-off is 300 ng/mL. Positive results are unconfirmed and should not be used for non-medical purposes. Cannabinoid Screen Urine Not Detected Not Detect Cannabinoid cut-off is 50 ng/mL. Positive results are unconfirmed and should not be used for non-medical purposes. Methadone Screen, Urine Not Detected Not Detect ng/mL Methadone cut-off is 300 ng/mL. Positive results are unconfirmed and should not be used for non-medical purposes. Fentanyl, urine Not Detected Not Detect Fentanyl cut-off is 1 ng/mL. Positive results are unconfirmed and should not be used for non-medical purposes. Oxycodone Screen Urine Not Detected Not Detect ng/mL Oxycodone cut-off is 100 ng/mL. Positive results are unconfirmed and should not be used for non-medical purposes. Buprenorphine Scr Not Detected Not Detect ng/mL Buprenorphine cut-off is 5 ng/mL. Positive results are unconfirmed and should not be used for non-medical purposes. Salicylate Reviewed date:06/21/2023 07:13:18 PM Interpretation: Performing Lab:[facility], [address] [place] [address] Notes/Report: Salicylate < 5.0 15-30 mg/dL Acetaminophen LAB Reviewed date:06/21/2023 07:13:44 PM Interpretation: Performing Lab:[facility], [address] [place] [phone] Notes/Report: Acetaminophen LAB < 3 <30 mcg/mL Ethanol Reviewed date:06/21/2023 07:14:22 PM Interpretation: Performing Lab:[facility], [address] [place] [phone] Notes/Report: Ethanol 271 Serum/plasma ethanol results are to be used for medical/treatment purposes only. UA ClnCatch+Micro w/rflx Cul t Reviewed date:06/22/2023 12:33:34 PM Interpretation: Performing Lab:[facility], [address] [place] [phone] Notes/Report: Urine, Clean Catch Color Urine Yellow Appearance Urine Clear PH 6.0 5.0-9.0 Glucose Urine UA Negative Negative mg/dL Urine Blood Negative Negative Specific [place] - Urine >= 1.030 1.005-1.025 Urine Protein 30 (1+) Neg-Trace mg/dL Urine Ketones Trace Negative mg/dL Nitrite Urine Negative Negative Leukocyte Esterase Urine Trace Negative RBC Urine 0-2 0-2 /HPF WBC Urine 0-5 0-5 /HPF Squamous Epithelial Cell Urine 0-2 0-2 /HPF Bacteria Urine None Seen None Seen Hyaline Casts Urine 0-2 0-2 /LPF Magnesium Reviewed date:06/24/2023 04:57:13 PM Interpretation: Performing Lab:[facility], [address] [place] [phone] Notes/Report: Magnesium 1.9 1.6-2.6 mg/dL Lipid Panel Reviewed date:06/24/2023 04:57:13 PM Interpretation: Performing Lab:[facility], [address] [place] [phone] Notes/Report: Triglycerides 222 <150 mg/dL Desirable Triglyceride: less than 150 mg/dL Borderline High Triglyceride 150-199 mg/dL High Triglyceride: 200-499 mg/dL Very High Triglyceride: greater than or equal to 5OO mg/dL Cholesterol 205 <200 mg/dL Desirable Cholesterol: less than 200 mg/dL Borderline High Cholesterol: 200-239 mg/dL High Cholesterol: greater than 239 mg/dL LDL Cholesterol Calculated 102 <100 mg/dL Desirable LDL: less than 100 mg/dL Near Optimal/Above Optimal LDL: 110-129 mg/dL Borderline High LDL: 130-159 mg/dL High LDL: 160-189 mg/dL Very High LDL: greater than or equal to 190 mg/dL HDL Cholesterol 59 >40 mg/dL Desirable HDL: greater than 40 mg/dL Note: This HDL assay may give artificially low results in patients with liver disease. Vitamin B12 Reviewed date:06/24/2023 04:57:13 PM Interpretation: Performing Lab:[facility], [address] [place] [phone] Notes/Report: Vitamin B12 414 200-900 pg/mL NORMAL 200-900 PG/ML INDETERMINATE 160-199 PG/ML DEFICIENT < 160 PG/ML Folate Reviewed date:06/24/2023 04:57:13 PM Interpretation: Performing Lab:[facility], [address] [place] [phone] Notes/Report: Folate 13.9 > or = 4.0 ng/mL Reference Values: > or = 4.0 ng/mL < 4.0 ng/mL suggests folate deficiency Methotrexate, aminopterin and folinic acid (leucovorin) are chemotherapeutic agents whose molecular structures are similar to folate; therefore, the Compliance Representative folate assay cannot be used for patients using these drugs. Free T4 (Free Thyroxine) Reviewed date:06/24/2023 04:57:13 PM Interpretation: Performing Lab:[facility], [address] [place] [phone] Notes/Report: Free T4 (Free Thyroxine) 1.07 0.71-1.85 ng/dL Thyroid Stimulating Hormone Reviewed date:06/24/2023 04:57:13 PM Interpretation: Performing Lab:[facility], [address] [place] [phone] Notes/Report: Thyroid Stimulating Hormone 1.49 0.32-4.0 uIU/ mL TSH 3rd Generation ([facility]) Hemoglobin A1c Reviewed date:06/24/2023 04:57:13 PM Interpretation: Performing Lab:[facility], [address] [place] [phone] Notes/Report: Hemoglobin A1c % 5.2 <6.0 % Hemoglobin A1C Reference Range Adults: 4.8 - 6.0 % Non diabetic: < 6.0 % Goal: < 7.0 % Additional Action Suggested: > 8.0 % Note: Hemoglobin A1c results are invalid for patients with abnormal amounts of HbF. Blood transfusions may impact the HbA1c concentration in the patient sample. Estimated Average Glucose 103 eAG = Estimated average glucose which is %A1C expressed as average glucose, using the formula of the [id number]-[id number] Average Glucose study (ADAG), Diabetes Care, Vol.31,#8, Sep. 2007 Complete Blood Count Auto Di ff Reviewed date:09/03/2023 06:14:51 PM Interpretation: Performing Lab:[facility], [address] [place] [phone] Notes/Report: White Blood Count 7.2 4.8-10.8 X10*3/uL Red Blood Count 4.58 4.60-5.80 X10*6/uL Hemoglobin 14.0 14.0-18.0 g/dl Hematocrit 42.8 42.0-52.0 % Mean Corpuscular Volume 93.4 80.0-98.0 fL Mean Corpuscular Hemoglobin 30.6 27.0-33.0 pg Mean Corpuscular HGB Conc 32.7 31.0-36.0 g/dl Red Cell Distribution Width 12.7 11.0-16.0 % Platelet Count 252 160-400 X10*3/uL Mean Platelet Volume 9.9 9.4-12.4 fL Neutrophils Percent Auto 49.8 45-73 % Imm Gran Pct Auto 0.3 0.0-0.4 % Lymphocytes Percent Auto 33.7 20-40 % Monocytes Percent Auto 11.5 2-11 % Eosinophils Percent Auto 3.6 0-4 % Basophils Percent Auto 1.1 0-2 % NRBC Pct Auto 0.0 0.0-0.2 /100WBC Neutrophils Absolute Auto 3.6 2.0-8.3 x10*3/u L Imm Gran Abs Auto 0.02 0.00-0.03 X10*3/uL Lymphocytes Absolute Auto 2.4 1.2-4.9 X10*3/u L Monocytes Absolute Auto 0.8 0.1-1.2 X10*3/uL Eosinophils Absolute Auto 0.3 0.0-0.4 X10*3/u L Basophils Absolute Auto 0.1 0.0-0.2 X10*3/uL NRBC Abs Auto 0.000 0.0-0.012 X10*3/uL Urinalysis and Microscopic Reviewed date:09/18/2023 07:55:46 AM Interpretation: Performing Lab:[facility], [address] [place] [phone] Notes/Report: Color Urine Yellow Appearance Urine Clear PH 5.5 5.0-9.0 Glucose Urine UA Negative Negative mg/dL Urine Blood Negative Negative Specific [place] - Urine <= 1.005 1.005-1.025 Urine Protein Negative Neg-Trace mg/dL Urine Ketones Negative Negative mg/dL Nitrite Urine Negative Negative Leukocyte Esterase Urine Negative Negative RBC Urine 0-2 0-2 /HPF WBC Urine 0-5 0-5 /HPF Squamous Epithelial Cell Urine 0-2 0-2 /HPF Bacteria Urine None Seen None Seen Hyaline Casts Urine 3-5 0-2 /LPF UA CC w/rflx Micro + Cult (N ot yet reviewed by provider) Interpretation: Performing Lab:[facility], [address] [place] [phone] Notes/Report: [id number] Urine, Clean Catch Color Urine Yellow Appearance Urine Clear PH 5.5 5.0-9.0 Glucose Urine UA Negative Negative mg/dL Urine Blood Negative Negative Specific [place] - Urine 1.025 1.005-1.025 Urine Protein Negative Neg-Trace mg/dL Urine Ketones Negative Negative mg/dL Nitrite Urine Negative Negative Leukocyte Esterase Urine Negative Negative Hold Red Reviewed date:03/14/2024 01:02:36 PM Interpretation: Performing Lab:[facility], [address] [place] [phone] Notes/Report: Hold Red See Note Specimen held untested for 24 hours; Call to request Chemistry testing. Complete Blood Count Auto Di ff (Not yet reviewed by provider) Interpretation: Performing Lab:[address] [phone] Notes/Report: White Blood Count 6.1 4.8-10.8 X10*3/uL [...] X10*3/uL NRBC Abs Auto 0.000 0.0-0.012 X10*3/uL Reason For Referral Reason sleep apnea Diagnosis 1 Sleep apnea [...] Referral Priority Routine Referral Appointment Date 05/15/2023 Medications Medication SIG (Take, Route, Fr equency, Duration) Notes Start Date End Date Status Sertraline HCl 100 MG TAKE 1.5TABLETS BY MOUTH EVERY DAY FOR 90 DAYS Orally Once a day Active Social History Tobacco Use: Social History Observation Description Date Details (start date - stop date) Never Smoker NA - NA Tobacco Use/Smoking Question Answer Notes Patient is a nonsmoker Additional Findings: Tobacco Non-User Cu rrent non-smoker, currently using no form of tobacco Alcohol Screen Question Answer Notes Did you have a drink containing alcohol in the p ast year? No Points 0 Interpretation Negative Problems Problem Type SNOMED Code ICD Code Onset Dates Problem Status W/U Status Risk Notes Problem Sleep apnea (58811459) Sleep apnea (G47.30) Active confirmed Problem 94614489 Lymphocytosis (D72.820) Active confirmed Problem 18238636 Alcohol abuse (F10.10) Active confirmed Problem Dysthymia (14494249) Dysthymia (F34.1) Active confirmed Vital Signs Blood pressure diastolic 74 mm Hg 09/17/2023 Height 70 in 09/17/2023 Blood pressure systolic 110 mm Hg 09/17/2023 Weight 249 lbs 09/17/2023 BMI 35.72 kg/m2 09/17/2023 Encounters Encounter Location Date Provider Diagnosis Aidan Minor MD [address] [place] [id number] 09/03/2023 Aidan Minor Lymphocytosis D72.82 0 Aidan Minor MD [address] [place] [id number] 09/17/2023 Aidan Minor Other proteinuria R80.8 ; Lymphocytosis D72.820 and Alcohol abuse F10.10 Adian Minor MD [address] [place] [id number] 03/14/2024 Aidan Minor Blood tests for routine general physical examination Z00.00 and Lymphocytosis D72.820 Aidan Minor MD [address] [place] [id number] 03/19/2023 Aidan Minor Alcohol abuse F10.10 ; Annual physical exam Z00.00 ; Dysthymia F34.1 and Depression screening Z13.31 Aidan Minor MD [address] [place] [id number] 07/05/2023 Aidan Minor Dysthymia F34.1 and Alcohol abuse F10.10 Aidan Minor MD [address] [place] [id number] 03/20/2023 Aidan Minor MD [address] [place] [id number] 06/28/2023 Aidan Minor MD [address] [place] [id number] 06/28/2023 Aidan Minor MD [address] [place] [id number] 09/27/2023 Aidan Minor Assessments Encounter Date Diagnosis (ICD Code) Assessment Notes Treatment Notes Treatment Clinical Notes Section Notes 09/03/2023 Lymphocytosis (ICD-10 - D72.820) 09/17/2023 Other proteinuria (ICD-10 - R80.8) at the time he had the protein had been binging but will recheck today 09/17/2023 Lymphocytosis (ICD-10 - D72.820) 03/14/2024 Blood tests for routine general physical examination (ICD-10 - Z00.00) 03/19/2023 Alcohol abuse (ICD-10 - F10.10) is in aa and doing well for one month 03/19/2023 Annual physical exam (ICD-10 - Z00.00) labs reviewed and discussed with patient 07/05/2023 Dysthymia (ICD-10 - F34.1) doing well at present had been suicidal and relates is doing well and has bryologist and people to contact if he feels that way 07/05/2023 Alcohol abuse (ICD-10 - F10.10) back in [facility] and is in contact with his sponser 09/17/2023 Alcohol abuse (ICD-10 - F10.10) is doing well at present after 30 days of in patient treatment. 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 Panel Fast 5 Lipid Panel 03/14/2024 UA CC w/rflx Micro + Cult 03/14/2024 UA ClnCatch+Micro w/rflx Cult 03/14/2024 Next Appt Details Provider Name:Aidan Rosenberg Disha ietee, 03/21/2024 02:30:00 PM, [address] [place] [address], [address], [place], [place], [phone], Insurance Providers Payer Name Payer Address Payer Phone Subscriber Number Group Number Insured Name Patient Relationship to Insured Coverage Start Date Coverage End Date [facility] [address] [place], [place] [id number] HENOK MONTOYA Self - patient is the insured
--- OUTSIDE RECORDS SUMMARY | 2024-03-14 13:13 | XMS_ITS | Continuity of Care Document ---
Author Name [facility] Organization [facility] Care Team Providers Care Activities Director Scouting Name Role Phone [facility] Unavailable Unavailable Allergies, Adverse Reactions, Alerts Combined list of allergies from Department of Defense and Veterans Affairs facilities. It does not include entries that were removed or entered in error. Substance Category Reaction Severity Reaction type Status Date Reported Comments Source No Known Allergies Drug allergy (disorder) active 06/09/2015 [place] [address] Immunizations Combined list of available immunizations from the Department of Defense and Veterans Affairs facilities. 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 Status Comments Source Influenza, injectable, quadrivalent, preservative free 1 2018 [id number] Seqirus (SEQ) complet ed Influenza , injectabl e, quadrival ent, preservat danna free DoD influenza, injectable, quadrivalent, contains preservative 1 2017 [id number] Seqirus (SEQ) comple t ed influenza , injectabl e, quadrival ent, contains preservat adnna DoD Influenza, injectable, Madin Elana Canine Kidney, preservative free, quadrivalent 3 2016 [id number] Seqirus (SEQ) comple t ed Influenza , injectabl e, Madin Elana Canine Kidney, preservat danna free, quadrival ent DoD hepatitis A vaccine, adult dosage 2 2016 [id number] SmithKline (SKB) complet ed hepatitis A vaccine, adult dosage DoD Influenza, seasonal, injectable, preservative free 2 2015 [id number] Seqirus (SEQ) comple t ed Influenza , seasonal, injectabl e, preservat danna free DoD measles, mumps and rubella virus vaccine 1 2015 [id number] Merck (MSD) complet ed measles, mumps and rubella virus vaccine DoD hepatitis A vaccine, adult dosage 1 2015 [id number] 52 SmithKline (SKB) complet ed hepatitis A vaccine, adult dosage DoD poliovirus vaccine, inactivated 1 2015 [id number] 10 Sanofi Pasteur (PMC) complet ed polioviru s vaccine, inactivat ed DoD meningococcal polysaccharid e (groups A, C, Y and W-135) diphtheria toxoid conjugate vaccine (MCV4P) 1 2015 [id number] 114 Sanofi Pasteur (PMC) complet ed meningoco ccal polysacch aride (groups A, C, Y and W-135) diphtheri a toxoid conjugate vaccine (MCV4P) DoD tetanus toxoid, reduced diphtheria toxoid, and acellular pertu is vaccine, adsorbed 1 2015 [id number] 115 Empact Interactive Mediaine (SKB) complet ed tetanus toxoid, reduced diphtheri a toxoid, and acellular pertussis vaccine, adsorbed DoD Adenovirus, type 4 and type 7, live, oral 1 2015 [id number] 143 Booster (BRR) complet ed Adenoviru s, type 4 and type 7, live, oral DoD influenza, injectable, quadrivalent, contains preservative 1 2015 [id number] 158 Empact Interactive Mediaine (SKB) complet ed influenza , injectabl e, quadrival ent, contains preservat danna DoD measles virus vaccine 0 2015 05 () Not Given measles virus vaccine DoD mumps virus vaccine 0 2015 07 () Not Given mumps virus vaccine DoD varicella virus vaccine 0 2015 [id number] () Not Given varicella virus vaccine DoD hepatitis B vaccine, unspecified formulation 0 2015 45 () Not Given hepatitis B vaccine, unspecifi ed formulati on DoD Encounters Combined list of: 1) Encounters from Department of Veterans Affairs facilities going back up to thelast 18 months. 2) Encounters from the Department of Defense facilities going back up to 280 months. Location Location Details Encounter Type Encounter Number Reason For Visit Attending Provider ADM Date DC Date Status Disposition Source [place] [address](Opt ometry Clinic [facility] OUTPATIENT [id number] SOUMYA COX 06/06 Released w/o Limitations [facility] [place] [address](O ptometr y Clinic BMT [facility]) [place] [address]([facility]) OUTPATIENT [id number] Notes Entered by: Diego WOMACK 09 Jun 2015 1028 ------- ------- ------- ------- -- Strep Prophyl CHAY Knox 06/08 Released w/o Limitations [facility] [place] [address], [place] [address]([facility]) OUTPATIENT [id number] Notes Entered by: MAX AYERS 10 Jun 2015 1239 ------- ------- ------- ------- -- Pain Pack SANDEEP FLETCHER 06/09 Released w/o Limitations [facility] [place] [address], [place] [address]([facility], BMT) OUTPATIENT [id number] RADHA HARDY 06/10 Released w/o Limitations [facility] [place] [address]([facility]) [facility], [place] [address]([facility]) OUTPATIENT [id number] Dry skin around nose and eyebrow DIOR Hanson 06/17 [facility] w[facility] Limitations [facility] [place] [address] [employer]([facility]) OUTPATIENT [id number] Cold like sx x 3 weeks MORA RAM 02/10 Released w/o Limitations [employer] [employer]([facility]) OUTPATIENT [id number] Notes Entered by: Marlene WATSON 10 Mar 2016 1001 ------- ------- ------- ------- -- Derm ref / Dry patch CESSNA, DORCAS Tran 03/10 Released w/o Limitations [employer]([facility] tudent [facility]inee [facility]) [employer]([facility] dent Trainee [facility]) OUTPATIENT [id number] Notes Entered by: OLGA MONTIEL 22 Mar 2016 1611 ------- ------- ------- ------- -- outproc ELLA Rubio 03/22 Released w/o Limitations [facility] [place] [address]([facility]N G [address]) OUTPATIENT [id number] Notes Entered by: KARO LANTIGUA 22 Jun 2017 1417 ------- ------- ------- ------- -- Resched uled from May APLHONSE GAMA 06/22 [facility] [place] [address](A [facility] [address]) [place] [address]([facility]N G [address]) TELE CONSULT [id number] Notes Entered by: ROXIE SAWYER 27 Jul 2017 1153 ------- ------- ------- ------- -- 469 f/u ROXIE SAWYER 07/27 [facility] [place] [address](A [facility] [address]) [place] [address]([facility]N G [address]) OUTPATIENT [id number] Notes Entered by: ROXIE SAWYER 31 Aug 2017 1420 ------- ------- ------- ------- -- ROXIE SKINNER 08/31 [facility] Limitations [facility] [place] [place] [address](A [facility] [address]) [place] [id number]([facility]N G [address]) OUTPATIENT [id number] Notes Entered by: ROXIE SAWYER 23 Oct 2017 1152 ------- ------- ------- ------- -- F/U appt SAY SAWYERRICK NOJUWAN 10/23 Released w/o Limitations [facility] [place] [address](A [facility] [address]) [place] [address](AFN G [address]) OUTPATIENT [id number] Notes Entered by: MANUEL DEAL 07 Jul 2018 1405 ------- ------- ------- ------- -- PURVI ANTUNEZ 07/07 Released w/o Limitations [facility] [place] [address](A [facility] [address]) [place] [address](AFN G [address]) TELE CONSULT [id number] Notes Entered by: DIGNA ROXIEKRANTHI GUERRERO 04 Feb 2019 1255 ------- ------- ------- ------- -- ROXIE Black 02/04 [facility] [place] [address](A [facility]NG [address]) Procedures Combined list of: 1) Procedures from Department of Veterans Affairs facilities going back up to thelast 18 months, not all VA non-surgical procedures are included; 2) All procedures from the Department of Defense facilities. Procedure Procedure Type Code Date Perfomer Comments Sour e Threshold Audiogram (Pure Tone) Automated Threshold Audiogram (Pure Tone) Automated [id number] 06/14/2015 RADHA HARDY Screening Test Of Visual Acuity, Quantitative, Bilateral Screening Test Of Visual Acuity, Quantitative, Bilateral 93409 06/07/2015 SOUMYA COX [employer] Fitting Monofocal Except For Aphakia [employer] Fitting Monofocal Except For Aphakia 17685 06/07/2015 SOUMYA COX [facility] PURE TONE AUDIOMETRY (THRESHOLD), AUTOMATED; AIR ONLY 06/11/2015 [facility]D SCREENING TEST OF VISUAL ACUITY, QUANTITATIVE, BILATERAL 06/07/2015 DoD Social History Combined list of available smoking, tobacco, and other social history from Department of Defense and Veterans Affairs facilities. Social History Type Response Date Comment Sour e This section is an empty social history section. DoD
[2024-03-14 14:19] LABS: Alkaline Phosphatase 50 U/L (39-117)
== END 2024-03-14 07:31 | disposition home or self-care (01) ==
LOC: HO.LNP 07:30
PROVIDERS: Visit Provider Internal Medicine
DX: Z00.00 Encounter for general adult medical examination without abnormal findings (principal); D72.820 Lymphocytosis (symptomatic)
CPT/HCPCS: 80053; 80061; 81003; 85025